=== PATIENT | male | born 1940 | race Caucasian/White ===

== ENCOUNTER 2018-03-24 13:15 | Observation (INO) | payer MEDICARE, BC ==
[2018-03-24] MEDS ORDERED: ONDANSETRON 4 MG INJ IV (14:00)
[2018-03-24] MEDS: SOD CHLORIDE 0.9% 1,000 ML IV (14:00)
[2018-03-24] MEDS ORDERED: ACETAMINOPHEN 325 MG TAB PO (14:00)
[2018-03-24 15:00] LABS: ADD MAN DIFF? NO
[2018-03-24 15:04] LABS: BASOPHILS % 0.3 % (0.0-2.0); EOSINOPHILS # 0.2 10^3/ul (0.0-0.5); EOSINOPHILS % 1.6 % (0.0-7.0); HEMATOCRIT 37.3 % (42.0-52.0); HEMOGLOBIN 11.7 g/dl (14.0-18.0); LYMPHOCYTES # 2.4 10^3/ul (0.8-2.9); LYMPHOCYTES % 23.1 % (15.0-51.0); MEAN CORPUSCULAR HEMOGLOBIN 28.9 pg (29.0-33.0); MEAN CORPUSCULAR HGB CONC 31.4 g/dl (32.0-37.0); MEAN CORPUSCULAR VOLUME 92.1 fl (82.0-101.0); MEAN PLATELET VOLUME 10.7 fl (7.4-10.4); MONOCYTE # 0.8 10^3/ul (0.3-0.9); MONOCYTES % 7.4 % (0.0-11.0); NEUTROPHIL # 7.1 10^3/ul (1.6-7.5); PLATELET COUNT 170 10^3/UL (140-415); RED BLOOD COUNT 4.05 10^6/ul (4.70-6.10); RED CELL DISTRIBUTION WIDTH 15.2 % (11.5-14.5)
[2018-03-24 15:04] LABS: WHITE BLOOD COUNT 10.6 10^3/ul (4.8-10.8)
[2018-03-24 15:23] LABS: INR 0.98; PROTIME 13.1 Sec (11.9-14.9)
[2018-03-24 15:24] LABS: PARTIAL THROMBOPLASTIN TIME 40.8 Sec (25.0-35.0)
[2018-03-24 15:25] LABS: ALANINE AMINOTRANSFERASE 61 IU/L (13-69); ALBUMIN 3.2 g/dl (3.3-4.9); ALKALINE PHOSPHATASE 147 IU/L (42-121); ANION GAP 9 (8-16); ASPARTATE AMINO TRANSFERASE 35 IU/L (15-46); BILIRUBIN,INDIRECT 0.5 mg/dl (0-1.1); BILIRUBIN,TOTAL 0.5 mg/dl (0.2-1.3); BLOOD UREA NITROGEN 17 mg/dl (7-20); CALCIUM 9.6 mg/dl (8.4-10.2); CARBON DIOXIDE 38 mmol/L (21-31); CHLORIDE 97 mmol/L (97-110); CREATININE 0.72 mg/dl (0.61-1.24); GLUCOSE 135 mg/dl (70-220); POTASSIUM 4.5 mmol/L (3.5-5.1); SODIUM 139 mmol/L (135-144); TOTAL PROTEIN 6.4 g/dl (6.1-8.1)
[2018-03-24] MEDS: ALPRAZOLAM 1 MG TAB GTB (17:35)
[2018-03-24] MEDS ORDERED: ALPRAZOLAM 0.25 MG TAB GTB (18:00)
[2018-03-24] MEDS ORDERED: ALBUTEROL/IPRATROPIUM (NEB) 3 ML AMP NEB (18:00)
[2018-03-25] MEDS: VALPROIC ACID LIQUID CUP 250 MG/5 ML CUP GTB ×4 (00:35→20:10)
[2018-03-25] MEDS: RANITIDINE 150 MG TAB GTB ×3 (00:36→20:08)
[2018-03-25] MEDS: METOPROLOL 25 MG TAB GTB ×3 (00:36→20:10)
[2018-03-25] MEDS ORDERED: PENDING SANTYL ORDER FOR WOUND CARE XX (05:30)
[2018-03-25] MEDS: LANSOPRAZOLE 30 MG CAP GTB (05:39)
[2018-03-25] MEDS: MULTIVITAMINS/MINERALS TAB GTB (09:22)
[2018-03-25] MEDS: ALPRAZOLAM 0.25 MG TAB GTB ×4 (09:23→20:08)
[2018-03-25] MEDS: ASPIRIN 81 MG TAB GTB (09:24)
[2018-03-25] MEDS: AMLODIPINE 5 MG TAB GTB (09:24)
[2018-03-25 15:03] LABS: ADD MAN DIFF? NO
[2018-03-25 15:12] LABS: BASOPHILS % 0.5 % (0.0-2.0); EOSINOPHILS # 0.2 10^3/ul (0.0-0.5); EOSINOPHILS % 2.7 % (0.0-7.0); HEMATOCRIT 36.6 % (42.0-52.0); HEMOGLOBIN 11.7 g/dl (14.0-18.0); LYMPHOCYTES % 31.7 % (15.0-51.0); MEAN CORPUSCULAR HEMOGLOBIN 29.4 pg (29.0-33.0); MEAN PLATELET VOLUME 10.6 fl (7.4-10.4); MONOCYTE # 0.5 10^3/ul (0.3-0.9); MONOCYTES % 7.8 % (0.0-11.0); NEUTROPHIL # 3.6 10^3/ul (1.6-7.5); NEUTROPHILS % 56.5 % (39.0-77.0); PLATELET COUNT 144 10^3/UL (140-415); RED BLOOD COUNT 3.98 10^6/ul (4.70-6.10)
[2018-03-25 15:12] LABS: WHITE BLOOD COUNT 6.3 10^3/ul (4.8-10.8)
[2018-03-25 15:25] LABS: ANION GAP 6 (8-16); BLOOD UREA NITROGEN 18 mg/dl (7-20); CALCIUM 9.5 mg/dl (8.4-10.2); CARBON DIOXIDE 35 mmol/L (21-31); CHLORIDE 101 mmol/L (97-110); CREATININE 0.64 mg/dl (0.61-1.24); GLUCOSE 122 mg/dl (70-220); POTASSIUM 4.4 mmol/L (3.5-5.1); SODIUM 138 mmol/L (135-144)
[2018-03-25] MEDS: LIDOCAINE 1%/EPI (MDV) 50 ML INJ INJ ×2 (17:00→17:35)
[2018-03-26] MEDS: LANSOPRAZOLE 30 MG CAP GTB (04:56)
[2018-03-26] MEDS: VALPROIC ACID LIQUID CUP 250 MG/5 ML CUP GTB ×2 (04:58→13:04)
[2018-03-26] MEDS: AMLODIPINE 5 MG TAB GTB (10:09)
[2018-03-26] MEDS: RANITIDINE 150 MG TAB GTB (10:09)
[2018-03-26] MEDS: ALPRAZOLAM 0.25 MG TAB GTB ×3 (10:09→17:55)
[2018-03-26] MEDS: MULTIVITAMINS/MINERALS TAB GTB (10:10)
[2018-03-26] MEDS: METOPROLOL 25 MG TAB GTB (10:10)
[2018-03-26] MEDS: IVERMECTIN 3 MG TAB PO (17:55)
[2018-03-26] MEDS ORDERED: PERMETHRIN 5% 60 GM CR TOP (21:00)
== END 2018-03-26 20:53 ==
LOC: E/R 13:15 → PP2 14:00
DX: L30.8 Other specified dermatitis (principal); L57.8 Other skin changes due to chronic exposure to nonionizing radiation; I10 Essential (primary) hypertension; I69.354 Hemiplegia and hemiparesis following cerebral infarction affecting left non-dominant side; R13.10 Dysphagia, unspecified; E78.5 Hyperlipidemia, unspecified; F41.9 Anxiety disorder, unspecified; F32.9 Major depressive disorder, single episode, unspecified; D50.9 Iron deficiency anemia, unspecified; Z93.1 Gastrostomy status; Z79.82 Long term (current) use of aspirin; Z74.01 Bed confinement status
CPT/HCPCS: 11100; 36415; 80048; 80053; 85025; 85610; 85730; 87081; 88305; 99285-25; G0378

== ENCOUNTER 2018-04-19 22:44 | Inpatient (IN) | payer MEDICARE, BC ==
[2018-04-20 00:19] LABS: ADD MAN DIFF? NO
[2018-04-20 00:23] LABS: BASOPHILS % 0.3 % (0.0-2.0); EOSINOPHILS # 0.1 10^3/ul (0.0-0.5); LYMPHOCYTES # 1.3 10^3/ul (0.8-2.9); LYMPHOCYTES % 10.7 % (15.0-51.0); MEAN CORPUSCULAR HEMOGLOBIN 29.3 pg (29.0-33.0); MEAN CORPUSCULAR HGB CONC 32.4 g/dl (32.0-37.0); MEAN CORPUSCULAR VOLUME 90.5 fl (82.0-101.0); MEAN PLATELET VOLUME 10.1 fl (7.4-10.4); MONOCYTE # 0.8 10^3/ul (0.3-0.9); MONOCYTES % 7.1 % (0.0-11.0); NEUTROPHIL # 9.5 10^3/ul (1.6-7.5); NEUTROPHILS % 80.3 % (39.0-77.0); PLATELET COUNT 218 10^3/UL (140-415); RED BLOOD COUNT 4.09 10^6/ul (4.70-6.10); RED CELL DISTRIBUTION WIDTH 13.9 % (11.5-14.5)
[2018-04-20 00:23] LABS: WHITE BLOOD COUNT 11.8 10^3/ul (4.8-10.8)
[2018-04-20] MEDS: SODIUM CHLORIDE 0.9% 1L BAG IV* (00:27)
[2018-04-20 00:44] LABS: INR 0.97
[2018-04-20 00:45] LABS: PARTIAL THROMBOPLASTIN TIME 31.6 Sec (25.0-35.0)
[2018-04-20 00:59] LABS: ALANINE AMINOTRANSFERASE 25 IU/L (13-69); ALKALINE PHOSPHATASE 111 IU/L (42-121); ANION GAP 8 (8-16); ASPARTATE AMINO TRANSFERASE 23 IU/L (15-46); BILIRUBIN,INDIRECT 0.1 mg/dl (0-1.1); BILIRUBIN,TOTAL 0.1 mg/dl (0.2-1.3); BLOOD UREA NITROGEN 18 mg/dl (7-20); CALCIUM 9.3 mg/dl (8.4-10.2); CARBON DIOXIDE 36 mmol/L (21-31); CHLORIDE 96 mmol/L (97-110); CREATININE 0.74 mg/dl (0.61-1.24); GLUCOSE 135 mg/dl (70-220); POTASSIUM 4.4 mmol/L (3.5-5.1); SODIUM 136 mmol/L (135-144); TOTAL PROTEIN 6.3 g/dl (6.1-8.1)
[2018-04-20] MEDS: LORAZEPAM 2 MG INJ IV ×2 (01:00→05:00)
[2018-04-20 01:02] LABS: LACTIC ACID 1.9 mmol/L (0.5-2.0)
[2018-04-20 01:15] LABS: TROPONIN-I < 0.012 ng/ml (0.000-0.120)
[2018-04-20] MEDS: CEFEPIME 2GM/50 ML (PMX) 50 ML IVPB (02:56)
[2018-04-20] MEDS: VANCOMYCIN 1 GM (PMX) 250 ML IVPB (02:58)
[2018-04-20] MEDS: ACETAMINOPHEN 650 MG SUPP PR (07:29)
[2018-04-20 08:34] LABS: ADD UMIC YES; UR ASCORBIC ACID 40 mg/dL (NEGATIVE); UR BILIRUBIN (Dip) NEGATIVE (NEGATIVE); UR BLOOD (Dip) NEGATIVE (NEGATIVE); UR CLARITY CLEAR (CLEAR); UR COLOR YELLOW (YELLOW); UR GLUCOSE (Dip) NEGATIVE (NEGATIVE); UR KETONES (Dip) 1+ mg/dL (NEGATIVE); UR LEUKOCYTE ESTERASE (Dip) NEGATIVE Leu/ul (NEGATIVE); UR MUCUS FEW /HPF (NONE SEEN); UR NITRITE (Dip) NEGATIVE (NEGATIVE); UR RBC 12 /HPF (0-5); UR SPECIFIC GRAVITY (Dip) 1.025 (1.003-1.030); UR TOTAL PROTEIN (Dip) 1+ mg/dl (NEGATIVE); UR UROBILINOGEN (Dip) NEGATIVE (NEGATIVE); UR WBC 2 /HPF (0-5)
[2018-04-20] MEDS ORDERED: ACETAMINOPHEN 650MG/20.3ML CUP GTB (09:00)
[2018-04-20] MEDS ORDERED: ALPRAZOLAM 0.5 MG TAB GTB (09:00)
[2018-04-20] MEDS: ALPRAZOLAM 0.5 MG TAB GTB ×4 (11:42→22:25)
[2018-04-20] MEDS: SOD CHLORIDE 0.45% 1,000 ML IV (11:42)
[2018-04-20] MEDS: RANITIDINE 150 MG TAB GTB ×2 (11:43→22:25)
[2018-04-20] MEDS: VALPROIC ACID LIQUID CUP 250 MG/5 ML CUP GTB ×3 (11:43→22:25)
[2018-04-20] MEDS: ASPIRIN 81 MG TAB GTB (11:43)
[2018-04-20] MEDS: METOPROLOL 25 MG TAB GTB ×2 (11:43→22:51)
[2018-04-20] MEDS: CEFEPIME 1GM/50 ML (PMX) 50 ML IVPB ×2 (11:45→22:24)
[2018-04-20] MEDS: IPRATROPIUM (NEB) 0.5 MG/2.5 ML AMP HHN ×2 (13:36→19:30)
[2018-04-21] MEDS: ALPRAZOLAM 0.5 MG TAB GTB ×6 (01:34→21:01)
[2018-04-21] MEDS: SOD CHLORIDE 0.45% 1,000 ML IV ×2 (05:20→21:00)
[2018-04-21] MEDS: LANSOPRAZOLE 30 MG CAP GTB (05:21)
[2018-04-21 05:35] LABS: ADD MAN DIFF? NO
[2018-04-21 05:41] LABS: WHITE BLOOD COUNT 6.6 10^3/ul (4.8-10.8)
[2018-04-21 05:41] LABS: BASOPHILS % 0.6 % (0.0-2.0); EOSINOPHILS # 0.1 10^3/ul (0.0-0.5); EOSINOPHILS % 2.1 % (0.0-7.0); HEMATOCRIT 33.7 % (42.0-52.0); HEMOGLOBIN 10.6 g/dl (14.0-18.0); LYMPHOCYTES % 14.9 % (15.0-51.0); MEAN CORPUSCULAR HEMOGLOBIN 29.4 pg (29.0-33.0); MEAN CORPUSCULAR HGB CONC 31.5 g/dl (32.0-37.0); MEAN CORPUSCULAR VOLUME 93.4 fl (82.0-101.0); MEAN PLATELET VOLUME 10.2 fl (7.4-10.4); MONOCYTE # 0.3 10^3/ul (0.3-0.9); MONOCYTES % 5.1 % (0.0-11.0); NEUTROPHIL # 5.1 10^3/ul (1.6-7.5); NEUTROPHILS % 76.8 % (39.0-77.0); PLATELET COUNT 171 10^3/UL (140-415); RED BLOOD COUNT 3.61 10^6/ul (4.70-6.10); RED CELL DISTRIBUTION WIDTH 14.1 % (11.5-14.5)
[2018-04-21 06:05] LABS: ANION GAP 9 (8-16); BLOOD UREA NITROGEN 17 mg/dl (7-20); CALCIUM 8.7 mg/dl (8.4-10.2); CARBON DIOXIDE 31 mmol/L (21-31); CHLORIDE 106 mmol/L (97-110); CREATININE 0.58 mg/dl (0.61-1.24); GLUCOSE 155 mg/dl (70-220); POTASSIUM 4.2 mmol/L (3.5-5.1); SODIUM 142 mmol/L (135-144)
[2018-04-21] MEDS ORDERED: VANCOMYCIN IV PER PHARMACY XX (08:00)
[2018-04-21] MEDS: IPRATROPIUM (NEB) 0.5 MG/2.5 ML AMP HHN ×3 (08:41→19:45)
[2018-04-21] MEDS: METOPROLOL 25 MG TAB GTB ×2 (09:15→20:57)
[2018-04-21] MEDS: ASPIRIN 81 MG TAB GTB (09:15)
[2018-04-21] MEDS: RANITIDINE 150 MG TAB GTB ×2 (09:16→20:58)
[2018-04-21] MEDS: VALPROIC ACID LIQUID CUP 250 MG/5 ML CUP GTB ×3 (09:16→20:57)
[2018-04-21] MEDS: CEFEPIME 1GM/50 ML (PMX) 50 ML IVPB ×2 (09:30→21:01)
[2018-04-21] MEDS: VANCOMYCIN 1.25 GM in SOD CHLORIDE 0.9% 250 ML IVPB (11:02)
[2018-04-22] MEDS: ALPRAZOLAM 0.5 MG TAB GTB ×6 (01:00→20:39)
[2018-04-22 05:28] LABS: ADD MAN DIFF? NO
[2018-04-22 05:32] LABS: WHITE BLOOD COUNT 5.8 10^3/ul (4.8-10.8)
[2018-04-22 05:32] LABS: BASOPHILS % 0.7 % (0.0-2.0); EOSINOPHILS # 0.3 10^3/ul (0.0-0.5); EOSINOPHILS % 4.8 % (0.0-7.0); HEMATOCRIT 33.5 % (42.0-52.0); HEMOGLOBIN 10.5 g/dl (14.0-18.0); LYMPHOCYTES # 1.1 10^3/ul (0.8-2.9); LYMPHOCYTES % 18.2 % (15.0-51.0); MEAN CORPUSCULAR HGB CONC 31.3 g/dl (32.0-37.0); MEAN CORPUSCULAR VOLUME 92.5 fl (82.0-101.0); MEAN PLATELET VOLUME 10.3 fl (7.4-10.4); MONOCYTE # 0.6 10^3/ul (0.3-0.9); MONOCYTES % 10.1 % (0.0-11.0); NEUTROPHIL # 3.8 10^3/ul (1.6-7.5); NEUTROPHILS % 65.5 % (39.0-77.0); PLATELET COUNT 182 10^3/UL (140-415); RED BLOOD COUNT 3.62 10^6/ul (4.70-6.10); RED CELL DISTRIBUTION WIDTH 13.8 % (11.5-14.5)
[2018-04-22] MEDS: LANSOPRAZOLE 30 MG CAP GTB (06:01)
[2018-04-22] MEDS: IPRATROPIUM (NEB) 0.5 MG/2.5 ML AMP HHN ×3 (08:17→19:40)
[2018-04-22] MEDS: RANITIDINE 150 MG TAB GTB ×2 (10:01→20:39)
[2018-04-22] MEDS: ASPIRIN 81 MG TAB GTB (10:01)
[2018-04-22] MEDS: METOPROLOL 25 MG TAB GTB ×2 (10:02→20:39)
[2018-04-22] MEDS: VALPROIC ACID LIQUID CUP 250 MG/5 ML CUP GTB ×3 (10:02→20:38)
[2018-04-22] MEDS: CEFEPIME 1GM/50 ML (PMX) 50 ML IVPB ×2 (10:19→21:57)
[2018-04-22] MEDS: VANCOMYCIN 1.25 GM in SOD CHLORIDE 0.9% 250 ML IVPB (12:08)
[2018-04-22] MEDS: SOD CHLORIDE 0.45% 1,000 ML IV (13:00)
[2018-04-22 13:33] LABS: ANION GAP 8 (8-16); BLOOD UREA NITROGEN 15 mg/dl (7-20); CARBON DIOXIDE 36 mmol/L (21-31); CHLORIDE 102 mmol/L (97-110); CREATININE 0.56 mg/dl (0.61-1.24); GLUCOSE 105 mg/dl (70-220); POTASSIUM 4.3 mmol/L (3.5-5.1); SODIUM 142 mmol/L (135-144)
[2018-04-23] MEDS: ALPRAZOLAM 0.5 MG TAB GTB ×6 (01:00→20:46)
[2018-04-23] MEDS: LANSOPRAZOLE 30 MG CAP GTB (05:34)
[2018-04-23] MEDS: SOD CHLORIDE 0.45% 1,000 ML IV ×2 (05:35→22:20)
[2018-04-23] MEDS: IPRATROPIUM (NEB) 0.5 MG/2.5 ML AMP HHN ×3 (08:41→20:29)
[2018-04-23] MEDS: VALPROIC ACID LIQUID CUP 250 MG/5 ML CUP GTB ×3 (09:04→20:46)
[2018-04-23] MEDS: RANITIDINE 150 MG TAB GTB ×2 (09:05→20:46)
[2018-04-23] MEDS: ASPIRIN 81 MG TAB GTB (09:05)
[2018-04-23] MEDS: METOPROLOL 25 MG TAB GTB ×2 (09:06→20:46)
[2018-04-23] MEDS: LIDOCAINE 1% (MPF) 5 ML VIAL SC (10:30)
[2018-04-23] MEDS: CEFEPIME 1GM/50 ML (PMX) 50 ML IVPB ×2 (11:07→20:46)
[2018-04-23] MEDS: VANCOMYCIN 1.25 GM in SOD CHLORIDE 0.9% 250 ML IVPB (11:38)
[2018-04-24] MEDS: ALPRAZOLAM 0.5 MG TAB GTB ×5 (01:00→17:41)
[2018-04-24] MEDS: LANSOPRAZOLE 30 MG CAP GTB (05:40)
[2018-04-24 05:49] LABS: ADD MAN DIFF? NO
[2018-04-24] MEDS: DIPHENHYDRAMINE 50 MG INJ IV (05:52)
[2018-04-24] MEDS: SOD CHLORIDE 0.45% 1,000 ML IV (05:52)
[2018-04-24 05:56] LABS: BASOPHIL # 0.1 10^3/ul (0.0-0.1); EOSINOPHILS # 0.3 10^3/ul (0.0-0.5); EOSINOPHILS % 6.5 % (0.0-7.0); HEMATOCRIT 35.3 % (42.0-52.0); HEMOGLOBIN 11.1 g/dl (14.0-18.0); LYMPHOCYTES # 1.2 10^3/ul (0.8-2.9); MEAN CORPUSCULAR HEMOGLOBIN 28.8 pg (29.0-33.0); MEAN CORPUSCULAR HGB CONC 31.4 g/dl (32.0-37.0); MEAN CORPUSCULAR VOLUME 91.7 fl (82.0-101.0); MONOCYTE # 0.5 10^3/ul (0.3-0.9); MONOCYTES % 9.3 % (0.0-11.0); NEUTROPHILS % 58.8 % (39.0-77.0); PLATELET COUNT 183 10^3/UL (140-415); RED BLOOD COUNT 3.85 10^6/ul (4.70-6.10); RED CELL DISTRIBUTION WIDTH 13.9 % (11.5-14.5)
[2018-04-24 06:15] LABS: CREATININE 0.58 mg/dl (0.61-1.24)
[2018-04-24 06:15] LABS: BLOOD UREA NITROGEN 13 mg/dl (7-20)
[2018-04-24 06:16] LABS: ANION GAP 10 (8-16); BLOOD UREA NITROGEN 13 mg/dl (7-20); CALCIUM 9.1 mg/dl (8.4-10.2); CARBON DIOXIDE 33 mmol/L (21-31); CHLORIDE 104 mmol/L (97-110); CREATININE 0.57 mg/dl (0.61-1.24); GLUCOSE 123 mg/dl (70-220); POTASSIUM 4.3 mmol/L (3.5-5.1); SODIUM 143 mmol/L (135-144)
[2018-04-24] MEDS: IPRATROPIUM (NEB) 0.5 MG/2.5 ML AMP HHN ×3 (08:32→21:05)
[2018-04-24] MEDS: METOPROLOL 25 MG TAB GTB ×2 (09:23→20:48)
[2018-04-24] MEDS: ASPIRIN 81 MG TAB GTB (09:23)
[2018-04-24] MEDS: VALPROIC ACID LIQUID CUP 250 MG/5 ML CUP GTB ×3 (09:23→20:46)
[2018-04-24] MEDS: RANITIDINE 150 MG TAB GTB ×2 (09:23→20:47)
[2018-04-24] MEDS: CEFEPIME 1GM/50 ML (PMX) 50 ML IVPB ×2 (09:28→20:51)
[2018-04-24 12:19] LABS: VANCOMYCIN,TROUGH 7.3 ug/ml (10.0-20.0)
[2018-04-24] MEDS: VANCOMYCIN 1.25 GM in SOD CHLORIDE 0.9% 250 ML IVPB (12:44)
[2018-04-24] MEDS ORDERED: VITAMIN A & D 5 GM OINT PACKET TOP (16:57)
[2018-04-24] MEDS: ALPRAZOLAM 0.25 MG TAB GTB (18:36)
[2018-04-25] MEDS ORDERED: VANCOMYCIN 1 GM 250 ML IVPB
== END 2018-04-24 21:55 | DRG 871 ==
LOC: E/R 22:44 → MS1 04-20 02:16
PROC: 02HV33Z Insertion of Infusion Device into Superior Vena Cava, Percutaneous Approach (ICD-10-PCS; principal; 2018-04-23)
PROC: B54MZZA Ultrasonography of Right Upper Extremity Veins, Guidance (ICD-10-PCS; 2018-04-23)
DX: A41.9 Sepsis, unspecified organism (principal); J18.9 Pneumonia, unspecified organism; G93.40 Encephalopathy, unspecified; I69.354 Hemiplegia and hemiparesis following cerebral infarction affecting left non-dominant side; I10 Essential (primary) hypertension; E78.5 Hyperlipidemia, unspecified; R13.10 Dysphagia, unspecified; Z66 Do not resuscitate
CPT/HCPCS: 36569; 71045; 76937; 80048; 80053; 80202; 81001; 82565; 83605; 84484; 84520; 85025; 85610; 85730; 87040; 87086; 93005; 94640; 94664

== ENCOUNTER 2018-07-26 20:06 | Inpatient (IN) | payer MEDICARE, BC, OTHER ==
[2018-07-26] MEDS: IPRATROPIUM (NEB) 0.5 MG/2.5 ML AMP INH (20:44)
[2018-07-26] MEDS: ALBUTEROL 0.5% (NEB) 2.5 MG/0.5 ML AMP INH (20:44)
[2018-07-26] MEDS: CEFEPIME 2GM/50 ML (PMX) 50 ML IVPB (21:19)
[2018-07-26] MEDS: METHYLPREDNISOLONE 125 MG INJ IV (21:19)
[2018-07-26 21:23] LABS: WHITE BLOOD COUNT 13.4 10^3/ul (4.8-10.8)
[2018-07-26 21:23] LABS: HEMATOCRIT 39.4 % (42.0-52.0); HEMOGLOBIN 12.1 g/dl (14.0-18.0); MEAN CORPUSCULAR HEMOGLOBIN 28.5 pg (29.0-33.0); MEAN CORPUSCULAR HGB CONC 30.7 g/dl (32.0-37.0); MEAN CORPUSCULAR VOLUME 92.9 fl (82.0-101.0); MEAN PLATELET VOLUME 10.1 fl (7.4-10.4); PLATELET COUNT 286 10^3/UL (140-415); POSITIVE DIFF @See below; RED BLOOD COUNT 4.24 10^6/ul (4.70-6.10); RED CELL DISTRIBUTION WIDTH 13.6 % (11.5-14.5)
[2018-07-26 21:25] LABS: ADD MAN DIFF? YES
[2018-07-26] MEDS: VANCOMYCIN 1 GM (PMX) 250 ML IVPB (21:33)
[2018-07-26 21:43] LABS: ALANINE AMINOTRANSFERASE 28 IU/L (13-69); ALBUMIN 3.6 g/dl (3.3-4.9); ALKALINE PHOSPHATASE 117 IU/L (42-121); ANION GAP 15 (8-16); ASPARTATE AMINO TRANSFERASE 33 IU/L (15-46); BILIRUBIN,INDIRECT 0.2 mg/dl (0-1.1); BILIRUBIN,TOTAL 0.2 mg/dl (0.2-1.3); BLOOD UREA NITROGEN 17 mg/dl (7-20); CALCIUM 9.6 mg/dl (8.4-10.2); CARBON DIOXIDE 33 mmol/L (21-31); CHLORIDE 92 mmol/L (97-110); GLUCOSE 140 mg/dl (70-220); SODIUM 136 mmol/L (135-144); TOTAL PROTEIN 7.2 g/dl (6.1-8.1)
[2018-07-26 21:54] LABS: B-TYPE NATRIURETIC PEPTIDE 446 PG/ML (0-450); TROPONIN-I < 0.012 ng/ml (0.000-0.120)
[2018-07-26] MEDS ORDERED: ONDANSETRON 4 MG INJ IV (22:00)
[2018-07-26] MEDS ORDERED: ACETAMINOPHEN 325 MG TAB PO (22:00)
[2018-07-26] MEDS: ACETAMINOPHEN 650 MG SUPP PR (22:02)
[2018-07-26] MEDS: SODIUM CHLORIDE 0.9% 1L BAG IV* (22:03)
[2018-07-26 22:56] LABS: BAND NEUTROPHILS #M 1.7 10^3/ul (0.0-0.6); BAND NEUTROPHILS % (M) 13 % (0-4); EOSINOPHILS % (M) 1 % (0-7); GIANT THROMBO% (M) 2 % (0-0); LYMPHOCYTES #M 1.8 10^3/ul (0.8-2.9); LYMPHOCYTES % (M) 14 % (15-51); MONOCYTE #M 0.2 10^3/ul (0.3-0.9); MONOCYTES % (M) 2 % (0-11); MYELOCYTES #M 0.1 10^3/ul (0.0-0.0); MYELOCYTES % (M) 1 % (0-0); PLATELET ESTIMATE NORMAL; REACTIVE LYMPHOCYTES #M 0.9 10^3/ul (0.0-0.0); REACTIVE LYMPHOCYTES% (M) 7 % (0-0); SEG NEUT #M 8.4 10^3/ul (1.6-7.5); SEGMENTED NEUTROPHILS (M) % 61 % (39-77); SMUDGE%M 18 % (0-0)
[2018-07-26] MEDS ORDERED: VANCOMYCIN IV PER PHARMACY XX (23:30)
[2018-07-26] MEDS: SOD CHLORIDE 0.9% 1,000 ML IV (23:56)
[2018-07-27] MEDS ORDERED: morphine 2 MG INJ IV
[2018-07-27] MEDS: D5W-0.45 NACL + KCL 20 MEQ 1,000 ML IV (00:05)
[2018-07-27 01:05] LABS: LACTIC ACID 1.8 mmol/L (0.5-2.0)
[2018-07-27] MEDS: ALBUTEROL/IPRATROPIUM (NEB) 3 ML AMP HHN ×4 (02:00→20:23)
[2018-07-27 03:24] LABS: CREATINE KINASE 103 IU/L (23-200)
[2018-07-27 03:36] LABS: CK INDEX 1.5; CK-MB 1.53 ng/ml (0.0-2.4); TROPONIN-I 0.018 ng/ml (0.000-0.120)
[2018-07-27] MEDS ORDERED: ALBUTEROL/IPRATROPIUM (NEB) 3 ML AMP HHN (05:00)
[2018-07-27] MEDS: PANTOPRAZOLE (EC) 40 MG TAB PO (06:00)
[2018-07-27 06:13] LABS: AADO2 Arterial 499.8 mmHg (7.0-24.0); Allen Test ACCEPTAB; Arterial Base Excess 2.4 mmol/L (-3.0-3); Arterial COHb 0.3 % (0.0-3.0); Arterial Fraction of Oxyhgb 98.4 % (93.0-99.0); Arterial MetHb 0.3 % (0.0-1.5); Arterial Total Hemglobin 15.8 g/dl (12.0-18.0); MODE MASK - NRB; Site Right Radial
[2018-07-27 06:23] LABS: WHITE BLOOD COUNT 11.8 10^3/ul (4.8-10.8)
[2018-07-27 06:23] LABS: ABNORMAL IP MESSAGE 1; HEMATOCRIT 38.3 % (42.0-52.0); MEAN CORPUSCULAR HEMOGLOBIN 29.2 pg (29.0-33.0); MEAN CORPUSCULAR HGB CONC 31.3 g/dl (32.0-37.0); MEAN CORPUSCULAR VOLUME 93.2 fl (82.0-101.0); MEAN PLATELET VOLUME 10.6 fl (7.4-10.4); PLATELET COUNT 219 10^3/UL (140-415); POSITIVE DIFF @See below; RED BLOOD COUNT 4.11 10^6/ul (4.70-6.10); RED CELL DISTRIBUTION WIDTH 13.2 % (11.5-14.5)
[2018-07-27 06:32] LABS: ADD MAN DIFF? YES
[2018-07-27] MEDS: VANCOMYCIN 1.5 GM in SOD CHLORIDE 0.9% 250 ML IVPB (06:55)
[2018-07-27 07:00] LABS: CREATINE KINASE 83 IU/L (23-200)
[2018-07-27 07:04] LABS: CK INDEX 2.3; CK-MB 1.87 ng/ml (0.0-2.4)
[2018-07-27 07:07] LABS: ANION GAP 15 (8-16); BLOOD UREA NITROGEN 20 mg/dl (7-20); CALCIUM 9.5 mg/dl (8.4-10.2); CARBON DIOXIDE 29 mmol/L (21-31); CHLORIDE 98 mmol/L (97-110); CREATININE 0.73 mg/dl (0.61-1.24); GLUCOSE 282 mg/dl (70-220); POTASSIUM 5.2 mmol/L (3.5-5.1); SODIUM 137 mmol/L (135-144)
[2018-07-27] MEDS ORDERED: NON-FORMULARY/PATIENT OWN MED (Protein Supplement (Promod) 30 ML) XX (09:00)
[2018-07-27] MEDS: VALPROIC ACID LIQUID CUP 250 MG/5 ML CUP GTB ×3 (09:03→21:09)
[2018-07-27] MEDS: FERROUS SULFATE (EC) 325 MG TAB PO (09:03)
[2018-07-27] MEDS: ASPIRIN (EC) 81 MG TAB PO (09:03)
[2018-07-27] MEDS: CEFEPIME 1 GM/50 ML (09:04)
[2018-07-27] MEDS: METOPROLOL 25 MG TAB GTB ×2 (09:04→21:10)
[2018-07-27] MEDS: ENOXAPARIN 40 MG/0.4 ML SYG SC (09:05)
[2018-07-27 09:15] LABS: ANISOCYTOSIS 1+ (0-0); BAND NEUTROPHILS #M 2.3 10^3/ul (0.0-0.6); BAND NEUTROPHILS % (M) 20 % (0-4); LYMPHOCYTES #M 0.1 10^3/ul (0.8-2.9); LYMPHOCYTES % (M) 1 % (15-51); PLATELET ESTIMATE NORMAL; POIKILOCYTOSIS 2+ (0-0); POLYCHROMASIA 3+ (0-0); SEG NEUT #M 9.6 10^3/ul (1.6-7.5); SEGMENTED NEUTROPHILS (M) % 79 % (39-77); SMUDGE%M 1 % (0-0)
[2018-07-27] MEDS: LIDOCAINE 1% (MPF) 5 ML VIAL SC (14:55)
[2018-07-27] MEDS: DEXTROSE 5%-0.9% NACL 1,000 ML IV ×2 (16:11→23:48)
[2018-07-27 16:39] LABS: Allen Test ACCEPTAB; Arterial Base Excess 4.8 mmol/L (-3.0-3); Arterial Blood Gas Oxygen Sat 97.9 mmHG (95.0-100.0); Arterial COHb 0.2 % (0.0-3.0); Arterial Fraction of Oxyhgb 97.5 % (93.0-99.0); Arterial HCO3 32.1 mmol/L (22.0-26.0); Arterial MetHb 0.2 % (0.0-1.5); Arterial Total Hemglobin 11.9 g/dl (12.0-18.0); Arterial pCO2 61.6 mmhg (35-45); MODE MASK - NRB; Site Right Radial
[2018-07-27] MEDS ORDERED: morphine LIQ (10 MG/5 ML) CUP PO (17:00)
[2018-07-27] MEDS: FLUOCINONIDE 0.05% CR 30GM TUBE TOP (21:09)
[2018-07-27] MEDS: CEFEPIME 1GM/50 ML (PMX) 50 ML IVPB (21:09)
[2018-07-27] MEDS: VANCOMYCIN 1 GM 250 ML IVPB (22:54)
[2018-07-28] MEDS ORDERED: ALPRAZOLAM 0.5 MG TAB GTB (01:00)
[2018-07-28] MEDS: ALPRAZOLAM 0.25 MG TAB GTB ×4 (01:11→20:19)
[2018-07-28] MEDS: ALBUTEROL/IPRATROPIUM (NEB) 3 ML AMP HHN ×4 (01:31→20:47)
[2018-07-28] MEDS: PANTOPRAZOLE (EC) 40 MG TAB PO (06:03)
[2018-07-28] MEDS: FERROUS SULFATE (EC) 325 MG TAB PO (08:13)
[2018-07-28] MEDS: ASPIRIN (EC) 81 MG TAB PO (08:13)
[2018-07-28] MEDS: CEFEPIME 1GM/50 ML (PMX) 50 ML IVPB ×2 (08:14→20:20)
[2018-07-28] MEDS: VALPROIC ACID LIQUID CUP 250 MG/5 ML CUP GTB ×3 (08:14→20:20)
[2018-07-28] MEDS: METOPROLOL 25 MG TAB GTB ×2 (08:15→20:25)
[2018-07-28] MEDS: ENOXAPARIN 40 MG/0.4 ML SYG SC (08:23)
[2018-07-28 08:26] LABS: AADO2 Arterial 530.7 mmHg (7.0-24.0); Allen Test ACCEPTAB; Arterial Base Excess 3.8 mmol/L (-3.0-3); Arterial COHb 0.3 % (0.0-3.0); Arterial Fraction of Oxyhgb 97.5 % (93.0-99.0); Arterial HCO3 31.6 mmol/L (22.0-26.0); Arterial MetHb 0.2 % (0.0-1.5); Arterial Total Hemglobin 11.5 g/dl (12.0-18.0); Arterial pCO2 64.9 mmhg (35-45); MODE MASK - NRB; Site Right Radial
[2018-07-28] MEDS: VANCOMYCIN 1 GM 250 ML IVPB (10:55)
[2018-07-28] MEDS: DEXTROSE 5%-0.9% NACL 1,000 ML IV (11:03)
[2018-07-28] MEDS: MUPIROCIN 2% 22 GM OINT TOP (20:19)
[2018-07-28] MEDS: FLUOCINONIDE 0.05% CR 30GM TUBE TOP (20:26)
[2018-07-28 21:55] LABS: VANCOMYCIN,TROUGH 19.4 ug/ml (10.0-20.0)
[2018-07-29] MEDS: ALPRAZOLAM 0.25 MG TAB GTB ×6 (01:10→23:19)
[2018-07-29] MEDS: VANCOMYCIN 750 MG in SOD CHLORIDE 0.9% 150 ML IVPB ×2 (01:10→13:55)
[2018-07-29] MEDS: ALBUTEROL/IPRATROPIUM (NEB) 3 ML AMP HHN ×4 (02:03→20:02)
[2018-07-29] MEDS: PANTOPRAZOLE (EC) 40 MG TAB PO (06:21)
[2018-07-29] MEDS: DEXTROSE 5%-0.9% NACL 1,000 ML IV (06:22)
[2018-07-29 07:28] LABS: ADD MAN DIFF? NO
[2018-07-29 07:37] LABS: BASOPHILS % 0.3 % (0.0-2.0); EOSINOPHILS # 0.1 10^3/ul (0.0-0.5); EOSINOPHILS % 0.9 % (0.0-7.0); HEMATOCRIT 30.6 % (42.0-52.0); HEMOGLOBIN 9.4 g/dl (14.0-18.0); LYMPHOCYTES % 14.4 % (15.0-51.0); MEAN CORPUSCULAR HGB CONC 30.7 g/dl (32.0-37.0); MEAN CORPUSCULAR VOLUME 94.4 fl (82.0-101.0); MEAN PLATELET VOLUME 10.7 fl (7.4-10.4); MONOCYTE # 0.4 10^3/ul (0.3-0.9); MONOCYTES % 6.1 % (0.0-11.0); NEUTROPHIL # 5.2 10^3/ul (1.6-7.5); NEUTROPHILS % 77.9 % (39.0-77.0); PLATELET COUNT 211 10^3/UL (140-415); RED BLOOD COUNT 3.24 10^6/ul (4.70-6.10); RED CELL DISTRIBUTION WIDTH 13.1 % (11.5-14.5)
[2018-07-29 07:37] LABS: WHITE BLOOD COUNT 6.7 10^3/ul (4.8-10.8)
[2018-07-29 07:54] LABS: ANION GAP 7 (8-16); BLOOD UREA NITROGEN 17 mg/dl (7-20); CALCIUM 8.6 mg/dl (8.4-10.2); CARBON DIOXIDE 32 mmol/L (21-31); CHLORIDE 103 mmol/L (97-110); CREATININE 0.58 mg/dl (0.61-1.24); GLUCOSE 251 mg/dl (70-220); POTASSIUM 3.5 mmol/L (3.5-5.1); SODIUM 138 mmol/L (135-144)
[2018-07-29] MEDS: FERROUS SULFATE (EC) 325 MG TAB PO (09:16)
[2018-07-29] MEDS: ASPIRIN (EC) 81 MG TAB PO (09:16)
[2018-07-29] MEDS: VALPROIC ACID LIQUID CUP 250 MG/5 ML CUP GTB ×3 (09:16→21:05)
[2018-07-29] MEDS: METOPROLOL 25 MG TAB GTB (09:16)
[2018-07-29] MEDS: CEFEPIME 1GM/50 ML (PMX) 50 ML IVPB ×2 (09:20→21:01)
[2018-07-29] MEDS: MUPIROCIN 2% 22 GM OINT TOP ×2 (09:25→21:10)
[2018-07-29] MEDS: ENOXAPARIN 40 MG/0.4 ML SYG SC (09:27)
[2018-07-29] MEDS: METOPROLOL 5 MG INJ IV (09:41)
[2018-07-29] MEDS ORDERED: DIGOXIN 500 MCG INJ IV (13:00)
[2018-07-29] MEDS: SOD CHLORIDE 0.45% 1,000 ML IV (13:44)
[2018-07-29] MEDS: DIGOXIN 500 MCG INJ IV (13:52)
[2018-07-29] MEDS: METOPROLOL 50 MG TAB GTB (21:04)
[2018-07-29] MEDS: FLUOCINONIDE 0.05% CR 30GM TUBE TOP (21:11)
[2018-07-29] MEDS: ENOXAPARIN 60 MG/0.6 ML SYG SC (21:17)
[2018-07-30] MEDS: VANCOMYCIN 750 MG in SOD CHLORIDE 0.9% 150 ML IVPB ×2 (01:20→14:54)
[2018-07-30] MEDS: ALBUTEROL/IPRATROPIUM (NEB) 3 ML AMP HHN ×4 (02:01→19:53)
[2018-07-30] MEDS: ACETAMINOPHEN 325 MG TAB GTB (05:23)
[2018-07-30] MEDS: ALPRAZOLAM 0.25 MG TAB GTB ×4 (05:23→23:13)
[2018-07-30] MEDS: PANTOPRAZOLE (EC) 40 MG TAB PO (05:23)
[2018-07-30] MEDS: ASPIRIN (EC) 81 MG TAB PO (08:33)
[2018-07-30] MEDS: VALPROIC ACID LIQUID CUP 250 MG/5 ML CUP GTB ×3 (08:33→20:49)
[2018-07-30] MEDS: METOPROLOL 50 MG TAB GTB ×2 (08:34→20:49)
[2018-07-30] MEDS: FERROUS SULFATE (EC) 325 MG TAB PO (08:34)
[2018-07-30] MEDS: MUPIROCIN 2% 22 GM OINT TOP ×2 (08:35→21:06)
[2018-07-30] MEDS: CEFEPIME 1GM/50 ML (PMX) 50 ML IVPB ×2 (08:35→20:57)
[2018-07-30 08:47] LABS: HEMOGLOBIN A1C 6.1 % (0-5.9)
[2018-07-30] MEDS: ENOXAPARIN 60 MG/0.6 ML SYG SC ×2 (08:56→21:06)
[2018-07-30] MEDS: SOD CHLORIDE 0.45% 1,000 ML IV ×2 (12:33→20:55)
[2018-07-30] MEDS: FLUOCINONIDE 0.05% CR 30GM TUBE TOP (21:06)
[2018-07-31] MEDS: ALBUTEROL/IPRATROPIUM (NEB) 3 ML AMP HHN ×4 (01:34→19:44)
[2018-07-31] MEDS: VANCOMYCIN 750 MG in SOD CHLORIDE 0.9% 150 ML IVPB (01:44)
[2018-07-31] MEDS: PANTOPRAZOLE (EC) 40 MG TAB PO (05:13)
[2018-07-31] MEDS: ALPRAZOLAM 0.25 MG TAB GTB ×4 (05:13→23:30)
[2018-07-31 07:41] LABS: BLOOD UREA NITROGEN 12 mg/dl (7-20)
[2018-07-31 07:41] LABS: CREATININE 0.62 mg/dl (0.61-1.24)
[2018-07-31] MEDS: VALPROIC ACID LIQUID CUP 250 MG/5 ML CUP GTB ×3 (08:57→21:14)
[2018-07-31] MEDS: METOPROLOL 50 MG TAB GTB ×2 (08:58→21:18)
[2018-07-31] MEDS: ASPIRIN (EC) 81 MG TAB PO (08:58)
[2018-07-31] MEDS: CEFEPIME 1GM/50 ML (PMX) 50 ML IVPB ×2 (08:58→21:15)
[2018-07-31] MEDS: MUPIROCIN 2% 22 GM OINT TOP ×2 (08:58→21:20)
[2018-07-31] MEDS: FERROUS SULFATE (EC) 325 MG TAB PO (08:58)
[2018-07-31] MEDS: ENOXAPARIN 60 MG/0.6 ML SYG SC ×2 (09:24→21:36)
[2018-07-31] MEDS ORDERED: GLUCOSE GEL 15 GRAM TUBE BUCCAL (10:30)
[2018-07-31] MEDS ORDERED: GLUCOSE GEL 15 GRAM TUBE PO ×2 (10:30)
[2018-07-31] MEDS ORDERED: GLUCAGON 1 MG INJ IM (10:30)
[2018-07-31] MEDS ORDERED: DEXTROSE 50% 50 ML SYRINGE IV ×2 (10:30)
[2018-07-31] MEDS: INSULIN ASPART [NOVOLOG] 3 ML PEN SC ×3 (11:50→21:00)
[2018-07-31] MEDS: metFORMIN 500 MG TAB GTB (17:30)
[2018-07-31] MEDS: VANCOMYCIN 500MG/NS (PMX) 100 ML IVPB (17:34)
[2018-07-31] MEDS: FLUOCINONIDE 0.05% CR 30GM TUBE TOP (21:15)
[2018-08-01] MEDS: ALBUTEROL/IPRATROPIUM (NEB) 3 ML AMP HHN ×4 (01:51→20:00)
[2018-08-01] MEDS: ALPRAZOLAM 0.25 MG TAB GTB ×4 (05:11→23:22)
[2018-08-01] MEDS: PANTOPRAZOLE (EC) 40 MG TAB PO (05:11)
[2018-08-01] MEDS: SOD CHLORIDE 0.45% 1,000 ML IV (05:26)
[2018-08-01] MEDS: VANCOMYCIN 500MG/NS (PMX) 100 ML IVPB ×2 (05:26→17:27)
[2018-08-01 06:55] LABS: ADD MAN DIFF? NO
[2018-08-01 07:02] LABS: BASOPHILS % 0.4 % (0.0-2.0); EOSINOPHILS # 0.5 10^3/ul (0.0-0.5); EOSINOPHILS % 9.3 % (0.0-7.0); HEMATOCRIT 29.4 % (42.0-52.0); HEMOGLOBIN 9.2 g/dl (14.0-18.0); LYMPHOCYTES # 0.9 10^3/ul (0.8-2.9); MEAN CORPUSCULAR HEMOGLOBIN 29.3 pg (29.0-33.0); MEAN CORPUSCULAR HGB CONC 31.3 g/dl (32.0-37.0); MEAN CORPUSCULAR VOLUME 93.6 fl (82.0-101.0); MEAN PLATELET VOLUME 10.7 fl (7.4-10.4); MONOCYTE # 0.3 10^3/ul (0.3-0.9); MONOCYTES % 6.5 % (0.0-11.0); NEUTROPHIL # 3.2 10^3/ul (1.6-7.5); PLATELET COUNT 176 10^3/UL (140-415); RED BLOOD COUNT 3.14 10^6/ul (4.70-6.10); RED CELL DISTRIBUTION WIDTH 13.2 % (11.5-14.5)
[2018-08-01 07:38] LABS: ANION GAP 8 (8-16); BLOOD UREA NITROGEN 10 mg/dl (7-20); CALCIUM 8.2 mg/dl (8.4-10.2); CARBON DIOXIDE 37 mmol/L (21-31); CHLORIDE 100 mmol/L (97-110); GLUCOSE 151 mg/dl (70-220); POTASSIUM 3.5 mmol/L (3.5-5.1); SODIUM 141 mmol/L (135-144)
[2018-08-01] MEDS: metFORMIN 500 MG TAB GTB ×2 (07:44→17:26)
[2018-08-01] MEDS: INSULIN ASPART [NOVOLOG] 3 ML PEN SC ×4 (07:56→23:30)
[2018-08-01] MEDS: CEFEPIME 1GM/50 ML (PMX) 50 ML IVPB ×2 (09:30→20:11)
[2018-08-01] MEDS: MUPIROCIN 2% 22 GM OINT TOP ×2 (09:31→20:12)
[2018-08-01] MEDS: FERROUS SULFATE (EC) 325 MG TAB PO (09:31)
[2018-08-01] MEDS: VALPROIC ACID LIQUID CUP 250 MG/5 ML CUP GTB ×3 (09:32→20:11)
[2018-08-01] MEDS: METOPROLOL 50 MG TAB GTB ×2 (09:33→20:11)
[2018-08-01] MEDS: ENOXAPARIN 60 MG/0.6 ML SYG SC ×2 (09:38→20:19)
[2018-08-01] MEDS: FLUOCINONIDE 0.05% CR 30GM TUBE TOP (20:12)
[2018-08-02] MEDS: ALBUTEROL/IPRATROPIUM (NEB) 3 ML AMP HHN ×4 (02:09→19:50)
[2018-08-02] MEDS: DILTIAZEM 25 MG INJ IV (04:35)
[2018-08-02] MEDS: PANTOPRAZOLE (EC) 40 MG TAB PO (05:31)
[2018-08-02] MEDS: INSULIN ASPART [NOVOLOG] 3 ML PEN SC ×3 (05:31→17:03)
[2018-08-02] MEDS: VANCOMYCIN 500MG/NS (PMX) 100 ML IVPB ×2 (05:31→17:03)
[2018-08-02] MEDS: ALPRAZOLAM 0.25 MG TAB GTB (05:31)
[2018-08-02] MEDS: CEFEPIME 1GM/50 ML (PMX) 50 ML IVPB ×2 (08:14→21:17)
[2018-08-02] MEDS: VALPROIC ACID LIQUID CUP 250 MG/5 ML CUP GTB ×3 (08:14→21:16)
[2018-08-02] MEDS: metFORMIN 500 MG TAB GTB ×2 (08:14→16:59)
[2018-08-02] MEDS: FERROUS SULFATE (EC) 325 MG TAB PO (08:14)
[2018-08-02] MEDS: METOPROLOL 50 MG TAB GTB ×2 (08:16→21:16)
[2018-08-02] MEDS: LOSARTAN 25 MG TAB PO (08:16)
[2018-08-02] MEDS: MUPIROCIN 2% 22 GM OINT TOP ×2 (08:17→21:20)
[2018-08-02] MEDS: ENOXAPARIN 60 MG/0.6 ML SYG SC ×2 (08:19→21:43)
[2018-08-02] MEDS: ALPRAZOLAM 0.5 MG TAB GTB ×3 (12:06→21:16)
[2018-08-02] MEDS: SOD CHLORIDE 0.45% 1,000 ML IV (12:07)
[2018-08-02 17:18] LABS: VANCOMYCIN,TROUGH 10.7 ug/ml (10.0-20.0)
[2018-08-02] MEDS: FLUOCINONIDE 0.05% CR 30GM TUBE TOP (21:20)
[2018-08-03] MEDS: ALPRAZOLAM 0.5 MG TAB GTB ×6 (00:38→21:07)
[2018-08-03] MEDS: ALBUTEROL/IPRATROPIUM (NEB) 3 ML AMP HHN ×6 (01:47→20:56)
[2018-08-03] MEDS: PANTOPRAZOLE (EC) 40 MG TAB PO (05:09)
[2018-08-03] MEDS: VANCOMYCIN 750 MG in SOD CHLORIDE 0.9% 150 ML IVPB ×2 (05:14→18:00)
[2018-08-03] MEDS: INSULIN ASPART [NOVOLOG] 3 ML PEN SC ×4 (05:17→18:00)
[2018-08-03 07:07] LABS: ADD MAN DIFF? NO
[2018-08-03 07:12] LABS: WHITE BLOOD COUNT 4.6 10^3/ul (4.8-10.8)
[2018-08-03 07:12] LABS: BASOPHILS % 0.2 % (0.0-2.0); EOSINOPHILS # 0.4 10^3/ul (0.0-0.5); HEMATOCRIT 29.1 % (42.0-52.0); HEMOGLOBIN 8.9 g/dl (14.0-18.0); LYMPHOCYTES # 0.9 10^3/ul (0.8-2.9); LYMPHOCYTES % 20.3 % (15.0-51.0); MEAN CORPUSCULAR HEMOGLOBIN 28.8 pg (29.0-33.0); MEAN CORPUSCULAR HGB CONC 30.6 g/dl (32.0-37.0); MEAN CORPUSCULAR VOLUME 94.2 fl (82.0-101.0); MEAN PLATELET VOLUME 10.1 fl (7.4-10.4); MONOCYTE # 0.4 10^3/ul (0.3-0.9); MONOCYTES % 7.5 % (0.0-11.0); NEUTROPHIL # 2.9 10^3/ul (1.6-7.5); NEUTROPHILS % 62.9 % (39.0-77.0); PLATELET COUNT 167 10^3/UL (140-415); RED BLOOD COUNT 3.09 10^6/ul (4.70-6.10); RED CELL DISTRIBUTION WIDTH 13.3 % (11.5-14.5)
[2018-08-03 08:37] LABS: ANION GAP 7 (8-16); BLOOD UREA NITROGEN 11 mg/dl (7-20); CALCIUM 8.4 mg/dl (8.4-10.2); CARBON DIOXIDE 39 mmol/L (21-31); CHLORIDE 98 mmol/L (97-110); CREATININE 0.64 mg/dl (0.61-1.24); GLUCOSE 123 mg/dl (70-220); POTASSIUM 4.1 mmol/L (3.5-5.1); SODIUM 140 mmol/L (135-144)
[2018-08-03] MEDS: VALPROIC ACID LIQUID CUP 250 MG/5 ML CUP GTB ×3 (08:37→21:08)
[2018-08-03] MEDS: metFORMIN 500 MG TAB GTB ×2 (08:37→18:01)
[2018-08-03] MEDS: FERROUS SULFATE (EC) 325 MG TAB PO (08:39)
[2018-08-03] MEDS: CEFEPIME 1GM/50 ML (PMX) 50 ML IVPB ×2 (08:41→21:08)
[2018-08-03] MEDS: LOSARTAN 25 MG TAB PO (08:41)
[2018-08-03] MEDS: MUPIROCIN 2% 22 GM OINT TOP ×2 (08:41→21:09)
[2018-08-03] MEDS: METOPROLOL 50 MG TAB GTB ×2 (08:41→21:08)
[2018-08-03] MEDS: ENOXAPARIN 60 MG/0.6 ML SYG SC ×2 (09:00→21:36)
[2018-08-03] MEDS: SOD CHLORIDE 0.45% 1,000 ML IV (12:41)
[2018-08-03] MEDS: FUROSEMIDE 20 MG INJ IV (15:01)
[2018-08-03] MEDS: FLUOCINONIDE 0.05% CR 30GM TUBE TOP (21:50)
[2018-08-04] MEDS: ALPRAZOLAM 0.5 MG TAB GTB ×6 (00:13→20:59)
[2018-08-04] MEDS: ALBUTEROL/IPRATROPIUM (NEB) 3 ML AMP HHN ×4 (01:33→19:13)
[2018-08-04] MEDS: PANTOPRAZOLE (EC) 40 MG TAB PO (05:17)
[2018-08-04] MEDS: INSULIN ASPART [NOVOLOG] 3 ML PEN SC ×4 (05:22→17:49)
[2018-08-04] MEDS: VANCOMYCIN 750 MG in SOD CHLORIDE 0.9% 150 ML IVPB (05:29)
[2018-08-04] MEDS: LOSARTAN 25 MG TAB PO (08:40)
[2018-08-04] MEDS: VALPROIC ACID LIQUID CUP 250 MG/5 ML CUP GTB ×3 (08:40→20:58)
[2018-08-04] MEDS: METOPROLOL 50 MG TAB GTB ×2 (08:40→20:59)
[2018-08-04] MEDS: metFORMIN 500 MG TAB GTB ×2 (08:40→17:50)
[2018-08-04] MEDS: CEFEPIME 1GM/50 ML (PMX) 50 ML IVPB ×2 (08:41→21:01)
[2018-08-04] MEDS: MUPIROCIN 2% 22 GM OINT TOP ×2 (08:41→21:01)
[2018-08-04] MEDS: FERROUS SULFATE (EC) 325 MG TAB PO (08:41)
[2018-08-04] MEDS: ENOXAPARIN 60 MG/0.6 ML SYG SC ×2 (09:06→21:11)
[2018-08-04] MEDS: SOD CHLORIDE 0.45% 1,000 ML IV (13:09)
[2018-08-04] MEDS: FLUOCINONIDE 0.05% CR 30GM TUBE TOP (20:59)
[2018-08-05] MEDS: ALBUTEROL/IPRATROPIUM (NEB) 3 ML AMP HHN ×4 (01:11→19:40)
[2018-08-05] MEDS: ALPRAZOLAM 0.5 MG TAB GTB ×6 (02:23→20:34)
[2018-08-05] MEDS: PANTOPRAZOLE (EC) 40 MG TAB PO (05:15)
[2018-08-05] MEDS: hydrALAzine 20 MG INJ IV (05:16)
[2018-08-05] MEDS: INSULIN ASPART [NOVOLOG] 3 ML PEN SC ×4 (06:00→17:59)
[2018-08-05 06:34] LABS: ADD MAN DIFF? NO
[2018-08-05 06:38] LABS: WHITE BLOOD COUNT 7.8 10^3/ul (4.8-10.8)
[2018-08-05 06:38] LABS: BASOPHILS % 0.3 % (0.0-2.0); EOSINOPHILS # 0.3 10^3/ul (0.0-0.5); EOSINOPHILS % 4.3 % (0.0-7.0); HEMATOCRIT 34.3 % (42.0-52.0); HEMOGLOBIN 10.4 g/dl (14.0-18.0); LYMPHOCYTES # 1.7 10^3/ul (0.8-2.9); LYMPHOCYTES % 21.6 % (15.0-51.0); MEAN CORPUSCULAR HEMOGLOBIN 28.3 pg (29.0-33.0); MEAN CORPUSCULAR HGB CONC 30.3 g/dl (32.0-37.0); MEAN CORPUSCULAR VOLUME 93.5 fl (82.0-101.0); MEAN PLATELET VOLUME 10.1 fl (7.4-10.4); MONOCYTE # 0.5 10^3/ul (0.3-0.9); MONOCYTES % 6.8 % (0.0-11.0); NEUTROPHIL # 5.2 10^3/ul (1.6-7.5); NEUTROPHILS % 65.8 % (39.0-77.0); PLATELET COUNT 178 10^3/UL (140-415); RED BLOOD COUNT 3.67 10^6/ul (4.70-6.10); RED CELL DISTRIBUTION WIDTH 13.4 % (11.5-14.5)
[2018-08-05 07:04] LABS: ANION GAP 9 (8-16); BLOOD UREA NITROGEN 13 mg/dl (7-20); CALCIUM 8.9 mg/dl (8.4-10.2); CARBON DIOXIDE 39 mmol/L (21-31); CHLORIDE 92 mmol/L (97-110); CREATININE 0.62 mg/dl (0.61-1.24); GLUCOSE 124 mg/dl (70-220); POTASSIUM 3.7 mmol/L (3.5-5.1); SODIUM 136 mmol/L (135-144)
[2018-08-05] MEDS: METOCLOPRAMIDE 10 MG TAB GTB (08:10)
[2018-08-05] MEDS: VALPROIC ACID LIQUID CUP 250 MG/5 ML CUP GTB ×3 (08:45→20:33)
[2018-08-05] MEDS: FERROUS SULFATE (EC) 325 MG TAB PO (08:46)
[2018-08-05] MEDS: metFORMIN 500 MG TAB GTB ×2 (08:46→17:48)
[2018-08-05] MEDS: LOSARTAN 25 MG TAB PO (08:47)
[2018-08-05] MEDS: METOPROLOL 50 MG TAB GTB ×3 (08:47→20:35)
[2018-08-05] MEDS: MUPIROCIN 2% 22 GM OINT TOP ×2 (08:55→20:34)
[2018-08-05] MEDS: ENOXAPARIN 60 MG/0.6 ML SYG SC ×2 (09:22→20:37)
[2018-08-05] MEDS: SOD CHLORIDE 0.45% 1,000 ML IV (12:25)
[2018-08-05] MEDS: CEFEPIME 1GM/50 ML (PMX) 50 ML IVPB (20:33)
[2018-08-05] MEDS: FLUOCINONIDE 0.05% CR 30GM TUBE TOP (20:34)
[2018-08-06] MEDS: ALPRAZOLAM 0.5 MG TAB GTB ×6 (00:51→20:18)
[2018-08-06] MEDS: ALBUTEROL/IPRATROPIUM (NEB) 3 ML AMP HHN ×5 (02:46→20:16)
[2018-08-06] MEDS: PANTOPRAZOLE (EC) 40 MG TAB PO (05:36)
[2018-08-06] MEDS: METOPROLOL 50 MG TAB GTB ×3 (05:37→21:19)
[2018-08-06] MEDS: INSULIN ASPART [NOVOLOG] 3 ML PEN SC ×4 (05:37→17:24)
[2018-08-06] MEDS: CEFEPIME 1GM/50 ML (PMX) 50 ML IVPB ×2 (08:43→20:19)
[2018-08-06] MEDS: VALPROIC ACID LIQUID CUP 250 MG/5 ML CUP GTB ×3 (08:43→20:18)
[2018-08-06] MEDS: FERROUS SULFATE (EC) 325 MG TAB PO (08:43)
[2018-08-06] MEDS: metFORMIN 500 MG TAB GTB ×2 (08:43→17:25)
[2018-08-06] MEDS: LOSARTAN 25 MG TAB PO ×2 (08:44→20:18)
[2018-08-06] MEDS: ENOXAPARIN 60 MG/0.6 ML SYG SC ×2 (08:48→21:24)
[2018-08-06] MEDS: MUPIROCIN 2% 22 GM OINT TOP ×2 (08:50→21:19)
[2018-08-06 08:57] LABS: AADO2 Arterial 224.9 mmHg (7.0-24.0); Allen Test ACCEPTAB; Arterial Base Excess 11.9 mmol/L (-3.0-3); Arterial Blood Gas Oxygen Sat 95.4 mmHG (95.0-100.0); Arterial COHb 0.3 % (0.0-3.0); Arterial Fraction of Oxyhgb 94.8 % (93.0-99.0); Arterial HCO3 39.1 mmol/L (22.0-26.0); Arterial MetHb 0.3 % (0.0-1.5); Arterial Total Hemglobin 11.6 g/dl (12.0-18.0); Arterial pCO2 65.2 mmhg (35-45); MODE MASK - SIMPLE; Site Left Radial
[2018-08-06] MEDS: FUROSEMIDE 20 MG INJ IV (13:18)
[2018-08-06] MEDS: METOCLOPRAMIDE 10 MG TAB GTB (21:18)
[2018-08-06] MEDS: FLUOCINONIDE 0.05% CR 30GM TUBE TOP (21:19)
[2018-08-06] MEDS: ACETAMINOPHEN 325 MG TAB GTB (22:04)
[2018-08-06] MEDS ORDERED: VANCOMYCIN IV PER PHARMACY XX (22:30)
[2018-08-06] MEDS: MEROPENEM 1 GM/50ML(PMX) 50 ML IVPB (23:11)
[2018-08-06 23:21] LABS: LACTIC ACID 1.3 mmol/L (0.5-2.0)
[2018-08-07] MEDS: VANCOMYCIN 1.25 GM in SOD CHLORIDE 0.9% 250 ML IVPB (00:17)
[2018-08-07] MEDS: ALPRAZOLAM 0.5 MG TAB GTB ×6 (00:28→20:57)
[2018-08-07] MEDS: ALBUTEROL/IPRATROPIUM (NEB) 3 ML AMP HHN ×4 (01:48→19:36)
[2018-08-07] MEDS: MEROPENEM 1 GM/50ML(PMX) 50 ML IVPB ×3 (05:54→21:06)
[2018-08-07] MEDS: ACETAMINOPHEN 325 MG TAB GTB ×2 (05:55→20:57)
[2018-08-07] MEDS: PANTOPRAZOLE (EC) 40 MG TAB PO (05:56)
[2018-08-07] MEDS: METOPROLOL 50 MG TAB GTB ×3 (05:57→21:07)
[2018-08-07] MEDS: INSULIN ASPART [NOVOLOG] 3 ML PEN SC ×5 (06:09→23:00)
[2018-08-07 07:16] LABS: ADD MAN DIFF? NO
[2018-08-07 07:22] LABS: WHITE BLOOD COUNT 15.9 10^3/ul (4.8-10.8)
[2018-08-07 07:22] LABS: BASOPHILS % 0.1 % (0.0-2.0); EOSINOPHILS % 0.1 % (0.0-7.0); HEMATOCRIT 24.2 % (42.0-52.0); HEMOGLOBIN 7.4 g/dl (14.0-18.0); LYMPHOCYTES # 0.7 10^3/ul (0.8-2.9); LYMPHOCYTES % 4.1 % (15.0-51.0); MEAN CORPUSCULAR HEMOGLOBIN 28.9 pg (29.0-33.0); MEAN CORPUSCULAR HGB CONC 30.6 g/dl (32.0-37.0); MEAN CORPUSCULAR VOLUME 94.5 fl (82.0-101.0); MEAN PLATELET VOLUME 11.2 fl (7.4-10.4); MONOCYTE # 0.7 10^3/ul (0.3-0.9); MONOCYTES % 4.6 % (0.0-11.0); NEUTROPHIL # 14.3 10^3/ul (1.6-7.5); PLATELET COUNT 130 10^3/UL (140-415); POSITIVE DIFF @See below; RED BLOOD COUNT 2.56 10^6/ul (4.70-6.10); RED CELL DISTRIBUTION WIDTH 13.7 % (11.5-14.5)
[2018-08-07 07:33] LABS: NEUTROPHILS % 90.4 % (39.0-77.0)
[2018-08-07 07:55] LABS: BLOOD UREA NITROGEN 25 mg/dl (7-20); CALCIUM 8.7 mg/dl (8.4-10.2); CHLORIDE 91 mmol/L (97-110); GLUCOSE 153 mg/dl (70-220); POTASSIUM 3.9 mmol/L (3.5-5.1); SODIUM 134 mmol/L (135-144)
[2018-08-07 08:04] LABS: ANION GAP 5 (8-16); CARBON DIOXIDE 42 mmol/L (21-31)
[2018-08-07] MEDS: metFORMIN 500 MG TAB GTB ×2 (08:53→17:42)
[2018-08-07] MEDS: VALPROIC ACID LIQUID CUP 250 MG/5 ML CUP GTB ×3 (08:54→20:57)
[2018-08-07] MEDS: FERROUS SULFATE (EC) 325 MG TAB PO (08:54)
[2018-08-07] MEDS: LOSARTAN 25 MG TAB PO ×2 (08:54→21:07)
[2018-08-07] MEDS: ENOXAPARIN 60 MG/0.6 ML SYG SC ×2 (09:10→21:41)
[2018-08-07] MEDS: MUPIROCIN 2% 22 GM OINT TOP ×2 (09:10→21:06)
[2018-08-07] MEDS: VANCOMYCIN 750 MG in SOD CHLORIDE 0.9% 150 ML IVPB ×2 (12:43→23:00)
[2018-08-07] MEDS: FLUOCINONIDE 0.05% CR 30GM TUBE TOP (21:06)
[2018-08-08] MEDS: ALPRAZOLAM 0.5 MG TAB GTB ×7 (00:32→21:37)
[2018-08-08] MEDS: ALBUTEROL/IPRATROPIUM (NEB) 3 ML AMP HHN ×4 (01:49→20:00)
[2018-08-08] MEDS: MEROPENEM 1 GM/50ML(PMX) 50 ML IVPB ×3 (05:47→21:41)
[2018-08-08] MEDS: INSULIN ASPART [NOVOLOG] 3 ML PEN SC ×3 (05:47→17:29)
[2018-08-08] MEDS: LANSOPRAZOLE 30 MG CAP GTB (07:01)
[2018-08-08] MEDS: METOPROLOL 50 MG TAB GTB ×3 (07:01→21:41)
[2018-08-08] MEDS: metFORMIN 500 MG TAB GTB ×2 (08:33→17:29)
[2018-08-08] MEDS: VALPROIC ACID LIQUID CUP 250 MG/5 ML CUP GTB ×3 (09:09→21:37)
[2018-08-08] MEDS: FERROUS SULFATE (EC) 325 MG TAB PO (09:10)
[2018-08-08] MEDS: MUPIROCIN 2% 22 GM OINT TOP ×2 (09:10→21:42)
[2018-08-08] MEDS: LOSARTAN 25 MG TAB PO ×2 (09:11→21:40)
[2018-08-08] MEDS: ENOXAPARIN 60 MG/0.6 ML SYG SC ×2 (09:26→21:45)
[2018-08-08 13:14] LABS: VANCOMYCIN,TROUGH 12.5 ug/ml (10.0-20.0)
[2018-08-08] MEDS: VANCOMYCIN 750 MG in SOD CHLORIDE 0.9% 150 ML IVPB (13:40)
[2018-08-08] MEDS: FLUOCINONIDE 0.05% CR 30GM TUBE TOP (21:42)
[2018-08-09] MEDS: VANCOMYCIN 750 MG in SOD CHLORIDE 0.9% 150 ML IVPB ×2 (01:07→12:28)
[2018-08-09] MEDS: ALPRAZOLAM 0.5 MG TAB GTB ×6 (01:14→21:47)
[2018-08-09] MEDS: ALBUTEROL/IPRATROPIUM (NEB) 3 ML AMP HHN ×4 (01:29→20:14)
[2018-08-09 06:00] LABS: ADD MAN DIFF? NO
[2018-08-09] MEDS: INSULIN ASPART [NOVOLOG] 3 ML PEN SC ×4 (06:00→17:53)
[2018-08-09] MEDS: LANSOPRAZOLE 30 MG CAP GTB (06:02)
[2018-08-09] MEDS: MEROPENEM 1 GM/50ML(PMX) 50 ML IVPB ×3 (06:04→21:44)
[2018-08-09] MEDS: METOPROLOL 50 MG TAB GTB ×3 (06:07→21:51)
[2018-08-09 06:09] LABS: BASOPHILS % 0.2 % (0.0-2.0); EOSINOPHILS # 0.1 10^3/ul (0.0-0.5); EOSINOPHILS % 0.8 % (0.0-7.0); HEMATOCRIT 26.8 % (42.0-52.0); HEMOGLOBIN 8.3 g/dl (14.0-18.0); LYMPHOCYTES # 0.8 10^3/ul (0.8-2.9); LYMPHOCYTES % 9.5 % (15.0-51.0); MEAN CORPUSCULAR HEMOGLOBIN 29.1 pg (29.0-33.0); MEAN PLATELET VOLUME 11.4 fl (7.4-10.4); MONOCYTE # 0.7 10^3/ul (0.3-0.9); MONOCYTES % 8.1 % (0.0-11.0); NEUTROPHIL # 7.2 10^3/ul (1.6-7.5); NEUTROPHILS % 81.1 % (39.0-77.0); PLATELET COUNT 145 10^3/UL (140-415); RED BLOOD COUNT 2.85 10^6/ul (4.70-6.10); RED CELL DISTRIBUTION WIDTH 13.4 % (11.5-14.5)
[2018-08-09 06:09] LABS: WHITE BLOOD COUNT 8.9 10^3/ul (4.8-10.8)
[2018-08-09 06:39] LABS: ALANINE AMINOTRANSFERASE 18 IU/L (13-69); ALBUMIN 2.5 g/dl (3.3-4.9); ALBUMIN/GLOBULIN RATIO 0.86; ALKALINE PHOSPHATASE 63 IU/L (42-121); ANION GAP 7 (8-16); ASPARTATE AMINO TRANSFERASE 19 IU/L (15-46); BILIRUBIN,INDIRECT 0.2 mg/dl (0-1.1); BILIRUBIN,TOTAL 0.2 mg/dl (0.2-1.3); BLOOD UREA NITROGEN 17 mg/dl (7-20); CALCIUM 8.9 mg/dl (8.4-10.2); CARBON DIOXIDE 39 mmol/L (21-31); CHLORIDE 94 mmol/L (97-110); CREATININE 0.62 mg/dl (0.61-1.24); GLUCOSE 124 mg/dl (70-220); POTASSIUM 4.5 mmol/L (3.5-5.1); SODIUM 135 mmol/L (135-144); TOTAL PROTEIN 5.4 g/dl (6.1-8.1)
[2018-08-09 06:41] LABS: MAGNESIUM 1.8 mg/dl (1.7-2.5)
[2018-08-09] MEDS: metFORMIN 500 MG TAB GTB ×2 (08:53→17:52)
[2018-08-09] MEDS: VALPROIC ACID LIQUID CUP 250 MG/5 ML CUP GTB ×3 (08:58→21:44)
[2018-08-09] MEDS: FERROUS SULFATE (EC) 325 MG TAB PO (08:58)
[2018-08-09] MEDS: MUPIROCIN 2% 22 GM OINT TOP ×2 (08:59→21:48)
[2018-08-09] MEDS: LOSARTAN 25 MG TAB PO ×2 (09:01→21:47)
[2018-08-09] MEDS: ENOXAPARIN 60 MG/0.6 ML SYG SC ×2 (09:42→22:26)
[2018-08-09] MEDS: MAGNESIUM SULFATE 2 GM/50 ML 50 ML IVPB (13:42)
[2018-08-09] MEDS: FLUOCINONIDE 0.05% CR 30GM TUBE TOP (21:49)
[2018-08-10] MEDS: VANCOMYCIN 750 MG in SOD CHLORIDE 0.9% 150 ML IVPB ×2 (00:05→12:30)
[2018-08-10] MEDS: ALPRAZOLAM 0.5 MG TAB GTB ×6 (01:30→21:32)
[2018-08-10] MEDS: ALBUTEROL/IPRATROPIUM (NEB) 3 ML AMP HHN ×4 (02:05→19:41)
[2018-08-10] MEDS: HYDROCORTISONE 100 MG INJ IV (02:42)
[2018-08-10] MEDS: FUROSEMIDE 40 MG INJ IV (03:23)
[2018-08-10] MEDS: MEROPENEM 1 GM/50ML(PMX) 50 ML IVPB ×3 (05:54→21:51)
[2018-08-10] MEDS: METOPROLOL 50 MG TAB GTB ×3 (05:55→21:32)
[2018-08-10] MEDS: LANSOPRAZOLE 30 MG CAP GTB (06:09)
[2018-08-10 06:49] LABS: ADD MAN DIFF? NO
[2018-08-10] MEDS: INSULIN ASPART [NOVOLOG] 3 ML PEN SC ×4 (06:49→17:55)
[2018-08-10 06:55] LABS: ABNORMAL IP MESSAGE 1; BASOPHILS % 0.1 % (0.0-2.0); EOSINOPHILS % 0.1 % (0.0-7.0); HEMATOCRIT 27.1 % (42.0-52.0); HEMOGLOBIN 8.4 g/dl (14.0-18.0); LYMPHOCYTES # 0.4 10^3/ul (0.8-2.9); LYMPHOCYTES % 2.9 % (15.0-51.0); MEAN CORPUSCULAR HEMOGLOBIN 29.3 pg (29.0-33.0); MEAN CORPUSCULAR VOLUME 94.4 fl (82.0-101.0); MONOCYTE # 0.8 10^3/ul (0.3-0.9); MONOCYTES % 5.5 % (0.0-11.0); PLATELET COUNT 181 10^3/UL (140-415); POSITIVE DIFF @See below; RED BLOOD COUNT 2.87 10^6/ul (4.70-6.10); RED CELL DISTRIBUTION WIDTH 13.2 % (11.5-14.5)
[2018-08-10 06:55] LABS: WHITE BLOOD COUNT 14.3 10^3/ul (4.8-10.8)
[2018-08-10 07:36] LABS: ANION GAP 8 (8-16); BLOOD UREA NITROGEN 19 mg/dl (7-20); CALCIUM 8.9 mg/dl (8.4-10.2); CARBON DIOXIDE 39 mmol/L (21-31); CHLORIDE 90 mmol/L (97-110); CREATININE 0.71 mg/dl (0.61-1.24); GLUCOSE 167 mg/dl (70-220); POTASSIUM 3.9 mmol/L (3.5-5.1); SODIUM 133 mmol/L (135-144)
[2018-08-10] MEDS: LOSARTAN 25 MG TAB PO ×2 (08:44→21:31)
[2018-08-10] MEDS: VALPROIC ACID LIQUID CUP 250 MG/5 ML CUP GTB ×3 (08:44→21:31)
[2018-08-10] MEDS: metFORMIN 500 MG TAB GTB ×2 (08:44→17:50)
[2018-08-10] MEDS: FERROUS SULFATE (EC) 325 MG TAB PO (08:44)
[2018-08-10] MEDS: METHYLPREDNISOLONE 40 MG INJ IV ×2 (08:45→21:31)
[2018-08-10] MEDS: ENOXAPARIN 60 MG/0.6 ML SYG SC ×2 (08:55→21:49)
[2018-08-10] MEDS: MUPIROCIN 2% 22 GM OINT TOP ×2 (12:30→21:33)
[2018-08-10] MEDS: FLUOCINONIDE 0.05% CR 30GM TUBE TOP (21:33)
[2018-08-11] MEDS: VANCOMYCIN 750 MG in SOD CHLORIDE 0.9% 150 ML IVPB ×3 (01:07→23:30)
[2018-08-11] MEDS: ALPRAZOLAM 0.5 MG TAB GTB ×6 (01:07→20:02)
[2018-08-11] MEDS: INSULIN ASPART [NOVOLOG] 3 ML PEN SC ×5 (01:18→23:30)
[2018-08-11] MEDS: ALBUTEROL/IPRATROPIUM (NEB) 3 ML AMP HHN ×4 (02:00→20:30)
[2018-08-11] MEDS: LANSOPRAZOLE 30 MG CAP GTB (05:39)
[2018-08-11] MEDS: MEROPENEM 1 GM/50ML(PMX) 50 ML IVPB ×3 (05:40→20:48)
[2018-08-11] MEDS: METOPROLOL 50 MG TAB GTB ×3 (05:42→20:03)
[2018-08-11] MEDS: FUROSEMIDE 40 MG INJ IV ×2 (05:43→12:57)
[2018-08-11] MEDS: FERROUS SULFATE (EC) 325 MG TAB PO (08:44)
[2018-08-11] MEDS: METHYLPREDNISOLONE 40 MG INJ IV ×2 (08:44→20:02)
[2018-08-11] MEDS: LOSARTAN 25 MG TAB PO ×2 (08:44→20:02)
[2018-08-11] MEDS: VALPROIC ACID LIQUID CUP 250 MG/5 ML CUP GTB ×3 (08:44→20:01)
[2018-08-11] MEDS: POTASSIUM CHLORIDE (SR) 20 MEQ TAB PO (08:44)
[2018-08-11] MEDS: MUPIROCIN 2% 22 GM OINT TOP ×2 (08:45→20:03)
[2018-08-11] MEDS: ENOXAPARIN 60 MG/0.6 ML SYG SC ×2 (08:52→20:20)
[2018-08-11] MEDS: metFORMIN 500 MG TAB GTB ×2 (08:57→17:53)
[2018-08-11 09:14] LABS: ADD MAN DIFF? NO
[2018-08-11 09:26] LABS: BASOPHILS % 0.1 % (0.0-2.0); HEMATOCRIT 23.8 % (42.0-52.0); HEMOGLOBIN 7.2 g/dl (14.0-18.0); LYMPHOCYTES # 0.7 10^3/ul (0.8-2.9); LYMPHOCYTES % 8.1 % (15.0-51.0); MEAN CORPUSCULAR HEMOGLOBIN 28.2 pg (29.0-33.0); MEAN CORPUSCULAR HGB CONC 30.3 g/dl (32.0-37.0); MEAN CORPUSCULAR VOLUME 93.3 fl (82.0-101.0); MEAN PLATELET VOLUME 11.4 fl (7.4-10.4); MONOCYTE # 0.4 10^3/ul (0.3-0.9); MONOCYTES % 4.6 % (0.0-11.0); NEUTROPHILS % 86.7 % (39.0-77.0); PLATELET COUNT 175 10^3/UL (140-415); RED BLOOD COUNT 2.55 10^6/ul (4.70-6.10); RED CELL DISTRIBUTION WIDTH 13.2 % (11.5-14.5)
[2018-08-11 09:26] LABS: WHITE BLOOD COUNT 9.2 10^3/ul (4.8-10.8)
[2018-08-11 09:45] LABS: BLOOD UREA NITROGEN 24 mg/dl (7-20); CHLORIDE 89 mmol/L (97-110); CREATININE 0.71 mg/dl (0.61-1.24); GLUCOSE 156 mg/dl (70-220); POTASSIUM 4.3 mmol/L (3.5-5.1); SODIUM 134 mmol/L (135-144)
[2018-08-11 09:56] LABS: ANION GAP 9 (8-16)
[2018-08-11 10:01] LABS: CARBON DIOXIDE 40 mmol/L (21-31)
[2018-08-11] MEDS: DILTIAZEM 25 MG INJ IV (10:53)
[2018-08-11 12:35] LABS: VANCOMYCIN,TROUGH 15.2 ug/ml (10.0-20.0)
[2018-08-11] MEDS ORDERED: DILTIAZEM 25 MG INJ IV (14:00)
[2018-08-11] MEDS: DIGOXIN 500 MCG INJ IV ×2 (14:18→20:01)
[2018-08-11 17:17] LABS: IMMEDIATE SPIN CROSSMATCH 1 1
[2018-08-11] MEDS: SOD CHLORIDE 0.9% 250 ML IV* (17:33)
[2018-08-11] MEDS: FLUOCINONIDE 0.05% CR 30GM TUBE TOP (20:04)
[2018-08-11] MEDS: FUROSEMIDE 20 MG INJ IV (20:48)
[2018-08-12] MEDS: ALPRAZOLAM 0.5 MG TAB GTB ×6 (01:00→21:09)
[2018-08-12] MEDS: ALBUTEROL/IPRATROPIUM (NEB) 3 ML AMP HHN ×4 (01:59→20:40)
[2018-08-12] MEDS: MEROPENEM 1 GM/50ML(PMX) 50 ML IVPB ×3 (05:22→21:10)
[2018-08-12] MEDS: METOPROLOL 50 MG TAB GTB ×3 (05:23→21:11)
[2018-08-12] MEDS: LANSOPRAZOLE 30 MG CAP GTB (05:24)
[2018-08-12] MEDS: INSULIN ASPART [NOVOLOG] 3 ML PEN SC ×3 (05:42→17:59)
[2018-08-12 06:41] LABS: ADD MAN DIFF? NO
[2018-08-12 06:55] LABS: BASOPHILS % 0.1 % (0.0-2.0); HEMATOCRIT 28.3 % (42.0-52.0); HEMOGLOBIN 8.8 g/dl (14.0-18.0); LYMPHOCYTES # 0.9 10^3/ul (0.8-2.9); LYMPHOCYTES % 9.7 % (15.0-51.0); MEAN CORPUSCULAR HEMOGLOBIN 29.2 pg (29.0-33.0); MEAN CORPUSCULAR HGB CONC 31.1 g/dl (32.0-37.0); MEAN PLATELET VOLUME 11.2 fl (7.4-10.4); MONOCYTE # 0.6 10^3/ul (0.3-0.9); MONOCYTES % 6.3 % (0.0-11.0); NEUTROPHIL # 7.8 10^3/ul (1.6-7.5); NEUTROPHILS % 82.3 % (39.0-77.0); PLATELET COUNT 225 10^3/UL (140-415); RED BLOOD COUNT 3.01 10^6/ul (4.70-6.10); RED CELL DISTRIBUTION WIDTH 13.6 % (11.5-14.5)
[2018-08-12 06:55] LABS: WHITE BLOOD COUNT 9.5 10^3/ul (4.8-10.8)
[2018-08-12 07:18] LABS: BLOOD UREA NITROGEN 30 mg/dl (7-20); CHLORIDE 90 mmol/L (97-110); CREATININE 0.74 mg/dl (0.61-1.24); GLUCOSE 162 mg/dl (70-220); POTASSIUM 4.6 mmol/L (3.5-5.1); SODIUM 138 mmol/L (135-144)
[2018-08-12 07:32] LABS: ANION GAP 9 (8-16); CARBON DIOXIDE 44 mmol/L (21-31)
[2018-08-12] MEDS: VALPROIC ACID LIQUID CUP 250 MG/5 ML CUP GTB ×3 (08:09→21:08)
[2018-08-12] MEDS: FERROUS SULFATE (EC) 325 MG TAB PO (08:10)
[2018-08-12] MEDS: POTASSIUM CHLORIDE (SR) 20 MEQ TAB PO (08:10)
[2018-08-12] MEDS: METHYLPREDNISOLONE 40 MG INJ IV ×3 (08:10→21:12)
[2018-08-12] MEDS: FUROSEMIDE 40 MG INJ IV (08:10)
[2018-08-12] MEDS: LOSARTAN 25 MG TAB PO ×2 (08:11→21:11)
[2018-08-12] MEDS: MUPIROCIN 2% 22 GM OINT TOP ×2 (08:11→21:16)
[2018-08-12] MEDS: ENOXAPARIN 60 MG/0.6 ML SYG SC ×2 (08:36→21:15)
[2018-08-12] MEDS: metFORMIN 500 MG TAB GTB ×2 (08:37→17:35)
[2018-08-12] MEDS: VANCOMYCIN 750 MG in SOD CHLORIDE 0.9% 150 ML IVPB (12:47)
[2018-08-12] MEDS: DILTIAZEM 30 MG TAB PO ×2 (14:04→21:10)
[2018-08-12] MEDS: FLUOCINONIDE 0.05% CR 30GM TUBE TOP (21:15)
[2018-08-13] MEDS: VANCOMYCIN 750 MG in SOD CHLORIDE 0.9% 150 ML IVPB ×2 (00:01→12:40)
[2018-08-13] MEDS: INSULIN ASPART [NOVOLOG] 3 ML PEN SC ×6 (00:12→20:40)
[2018-08-13] MEDS: ALPRAZOLAM 0.5 MG TAB GTB ×6 (00:44→20:38)
[2018-08-13] MEDS: ALBUTEROL/IPRATROPIUM (NEB) 3 ML AMP HHN ×4 (02:08→19:22)
[2018-08-13] MEDS: METHYLPREDNISOLONE 40 MG INJ IV ×3 (05:44→21:32)
[2018-08-13] MEDS: MEROPENEM 1 GM/50ML(PMX) 50 ML IVPB ×3 (05:44→21:25)
[2018-08-13] MEDS: METOPROLOL 50 MG TAB GTB ×3 (05:45→21:33)
[2018-08-13] MEDS: DILTIAZEM 30 MG TAB PO ×3 (05:45→21:32)
[2018-08-13] MEDS: LANSOPRAZOLE 30 MG CAP GTB (05:46)
[2018-08-13] MEDS: FUROSEMIDE 40 MG INJ IV (08:53)
[2018-08-13] MEDS: FERROUS SULFATE (EC) 325 MG TAB PO (08:53)
[2018-08-13] MEDS: LOSARTAN 25 MG TAB PO ×2 (08:53→20:39)
[2018-08-13] MEDS: metFORMIN 500 MG TAB GTB ×2 (08:53→18:34)
[2018-08-13] MEDS: VALPROIC ACID LIQUID CUP 250 MG/5 ML CUP GTB ×3 (08:53→20:39)
[2018-08-13] MEDS: MUPIROCIN 2% 22 GM OINT TOP (08:54)
[2018-08-13] MEDS: POTASSIUM CHLORIDE (SR) 20 MEQ TAB PO (08:54)
[2018-08-13] MEDS: ENOXAPARIN 60 MG/0.6 ML SYG SC ×2 (10:22→20:37)
[2018-08-13 15:43] LABS: AADO2 Arterial 339.5 mmHg (7.0-24.0); Allen Test ACCEPTAB; Arterial Base Excess 17.3 mmol/L (-3.0-3); Arterial Blood Gas Oxygen Sat 94.9 mmHG (95.0-100.0); Arterial COHb 0.3 % (0.0-3.0); Arterial Fraction of Oxyhgb 94.4 % (93.0-99.0); Arterial HCO3 44.7 mmol/L (22.0-26.0); Arterial MetHb 0.2 % (0.0-1.5); Arterial Total Hemglobin 10.6 g/dl (12.0-18.0); Arterial pCO2 70.3 mmhg (35-45); MODE MASK - SIMPLE; Site Left Radial
[2018-08-13] MEDS: FLUOCINONIDE 0.05% CR 30GM TUBE TOP (21:00)
[2018-08-14] MEDS: ALPRAZOLAM 0.5 MG TAB GTB ×6 (00:46→22:14)
[2018-08-14] MEDS: VANCOMYCIN 750 MG in SOD CHLORIDE 0.9% 150 ML IVPB ×2 (00:46→12:03)
[2018-08-14] MEDS: INSULIN ASPART [NOVOLOG] 3 ML PEN SC ×6 (00:47→21:00)
[2018-08-14] MEDS: ALBUTEROL/IPRATROPIUM (NEB) 3 ML AMP HHN ×4 (02:08→20:18)
[2018-08-14] MEDS: MEROPENEM 1 GM/50ML(PMX) 50 ML IVPB ×3 (05:23→22:07)
[2018-08-14] MEDS: LANSOPRAZOLE 30 MG CAP GTB (05:23)
[2018-08-14] MEDS: METOPROLOL 50 MG TAB GTB ×3 (05:23→22:07)
[2018-08-14] MEDS: METHYLPREDNISOLONE 40 MG INJ IV (05:23)
[2018-08-14] MEDS: DILTIAZEM 30 MG TAB PO ×3 (05:24→22:08)
[2018-08-14 06:53] LABS: ADD MAN DIFF? NO
[2018-08-14 06:56] LABS: WHITE BLOOD COUNT 6.4 10^3/ul (4.8-10.8)
[2018-08-14 06:56] LABS: BASOPHILS % 0.2 % (0.0-2.0); HEMOGLOBIN 8.9 g/dl (14.0-18.0); LYMPHOCYTES # 0.8 10^3/ul (0.8-2.9); LYMPHOCYTES % 12.9 % (15.0-51.0); MEAN CORPUSCULAR HEMOGLOBIN 28.6 pg (29.0-33.0); MEAN CORPUSCULAR HGB CONC 30.7 g/dl (32.0-37.0); MEAN CORPUSCULAR VOLUME 93.2 fl (82.0-101.0); MEAN PLATELET VOLUME 11.2 fl (7.4-10.4); MONOCYTE # 0.6 10^3/ul (0.3-0.9); MONOCYTES % 9.3 % (0.0-11.0); NEUTROPHIL # 4.7 10^3/ul (1.6-7.5); NEUTROPHILS % 73.6 % (39.0-77.0); PLATELET COUNT 243 10^3/UL (140-415); RED BLOOD COUNT 3.11 10^6/ul (4.70-6.10); RED CELL DISTRIBUTION WIDTH 13.2 % (11.5-14.5)
[2018-08-14 07:46] LABS: BLOOD UREA NITROGEN 41 mg/dl (7-20); CALCIUM 9.1 mg/dl (8.4-10.2); CHLORIDE 85 mmol/L (97-110); CREATININE 0.75 mg/dl (0.61-1.24); GLUCOSE 171 mg/dl (70-220); POTASSIUM 4.7 mmol/L (3.5-5.1); SODIUM 134 mmol/L (135-144)
[2018-08-14 08:03] LABS: ANION GAP 7 (8-16)
[2018-08-14 08:06] LABS: CARBON DIOXIDE 47 mmol/L (21-31)
[2018-08-14 08:47] LABS: AADO2 Arterial 241.8 mmHg (7.0-24.0); Allen Test ACCEPTAB; Arterial Base Excess 19.4 mmol/L (-3.0-3); Arterial Blood Gas Oxygen Sat 97.5 mmHG (95.0-100.0); Arterial COHb 0.3 % (0.0-3.0); Arterial Fraction of Oxyhgb 97.1 % (93.0-99.0); Arterial HCO3 46.6 mmol/L (22.0-26.0); Arterial MetHb 0.1 % (0.0-1.5); Arterial Total Hemglobin 10.6 g/dl (12.0-18.0); Arterial pCO2 70.4 mmhg (35-45); Blood Gas IEPAP 18/8; MODE MASK - BIPAP; Site Left Radial
[2018-08-14] MEDS: LOSARTAN 25 MG TAB PO ×2 (08:51→22:04)
[2018-08-14] MEDS: VALPROIC ACID LIQUID CUP 250 MG/5 ML CUP GTB ×3 (08:51→22:04)
[2018-08-14] MEDS: metFORMIN 500 MG TAB GTB ×2 (08:51→16:46)
[2018-08-14] MEDS: FERROUS SULFATE (EC) 325 MG TAB PO (08:51)
[2018-08-14] MEDS: FUROSEMIDE 40 MG INJ IV (08:51)
[2018-08-14] MEDS: POTASSIUM CHLORIDE (SR) 20 MEQ TAB PO (08:52)
[2018-08-14] MEDS: ENOXAPARIN 60 MG/0.6 ML SYG SC ×2 (09:02→22:14)
[2018-08-14] MEDS: FLUOCINONIDE 0.05% CR 30GM TUBE TOP (22:06)
[2018-08-14 23:33] LABS: VANCOMYCIN,TROUGH 15.4 ug/ml (10.0-20.0)
[2018-08-15] MEDS: ALPRAZOLAM 0.5 MG TAB GTB ×6 (00:37→20:43)
[2018-08-15] MEDS: VANCOMYCIN 750 MG in SOD CHLORIDE 0.9% 150 ML IVPB ×2 (00:37→12:25)
[2018-08-15] MEDS: INSULIN ASPART [NOVOLOG] 3 ML PEN SC ×6 (00:58→20:46)
[2018-08-15] MEDS: ALBUTEROL/IPRATROPIUM (NEB) 3 ML AMP HHN ×4 (01:14→20:03)
[2018-08-15] MEDS: METOPROLOL 50 MG TAB GTB ×3 (06:00→21:34)
[2018-08-15] MEDS: DILTIAZEM 30 MG TAB PO ×3 (06:00→21:33)
[2018-08-15] MEDS: MEROPENEM 1 GM/50ML(PMX) 50 ML IVPB ×3 (06:04→21:33)
[2018-08-15] MEDS: LANSOPRAZOLE 30 MG CAP GTB (06:06)
[2018-08-15] MEDS: metFORMIN 500 MG TAB GTB ×2 (08:52→16:47)
[2018-08-15] MEDS: FERROUS SULFATE (EC) 325 MG TAB PO (08:53)
[2018-08-15] MEDS: LOSARTAN 25 MG TAB PO ×2 (08:53→20:44)
[2018-08-15] MEDS: POTASSIUM CHLORIDE (SR) 20 MEQ TAB PO (08:53)
[2018-08-15] MEDS: VALPROIC ACID LIQUID CUP 250 MG/5 ML CUP GTB ×3 (08:53→20:42)
[2018-08-15] MEDS: FUROSEMIDE 40 MG INJ IV (08:54)
[2018-08-15] MEDS: ENOXAPARIN 60 MG/0.6 ML SYG SC ×2 (09:25→20:44)
[2018-08-15 12:22] LABS: AADO2 Arterial 442.6 mmHg (7.0-24.0); Allen Test ACCEPTAB; Arterial Base Excess 20.4 mmol/L (-3.0-3); Arterial Blood Gas Oxygen Sat 99.2 mmHG (95.0-100.0); Arterial COHb 0.3 % (0.0-3.0); Arterial Fraction of Oxyhgb 98.6 % (93.0-99.0); Arterial HCO3 48.5 mmol/L (22.0-26.0); Arterial MetHb 0.3 % (0.0-1.5); Arterial Total Hemglobin 13.2 g/dl (12.0-18.0); Arterial pCO2 71.2 mmhg (35-45); Blood Gas PS 10; MODE MASK - BIPAP; Site Left Radial
[2018-08-15] MEDS: FLUOCINONIDE 0.05% CR 30GM TUBE TOP (20:46)
[2018-08-16] MEDS: VANCOMYCIN 750 MG in SOD CHLORIDE 0.9% 150 ML IVPB ×2 (00:10→12:37)
[2018-08-16] MEDS: ALPRAZOLAM 0.5 MG TAB GTB ×6 (00:24→21:00)
[2018-08-16] MEDS: INSULIN ASPART [NOVOLOG] 3 ML PEN SC ×6 (00:27→21:00)
[2018-08-16] MEDS: ALBUTEROL/IPRATROPIUM (NEB) 3 ML AMP HHN ×4 (01:42→19:37)
[2018-08-16] MEDS: METOPROLOL 50 MG TAB GTB ×3 (05:04→22:32)
[2018-08-16] MEDS: DILTIAZEM 30 MG TAB PO ×3 (05:05→22:32)
[2018-08-16] MEDS: LANSOPRAZOLE 30 MG CAP GTB (05:05)
[2018-08-16] MEDS: MEROPENEM 1 GM/50ML(PMX) 50 ML IVPB ×3 (05:05→22:32)
[2018-08-16] MEDS: LOSARTAN 25 MG TAB PO ×2 (08:32→21:00)
[2018-08-16] MEDS: FERROUS SULFATE (EC) 325 MG TAB PO (08:34)
[2018-08-16] MEDS: metFORMIN 500 MG TAB GTB ×2 (08:35→17:42)
[2018-08-16] MEDS: FUROSEMIDE 40 MG INJ IV (08:35)
[2018-08-16] MEDS: VALPROIC ACID LIQUID CUP 250 MG/5 ML CUP GTB ×3 (08:35→21:00)
[2018-08-16] MEDS: ENOXAPARIN 60 MG/0.6 ML SYG SC ×2 (08:49→21:00)
[2018-08-16 09:13] LABS: ADD MAN DIFF? NO
[2018-08-16 09:21] LABS: BASOPHILS % 0.4 % (0.0-2.0); EOSINOPHILS # 0.2 10^3/ul (0.0-0.5); EOSINOPHILS % 1.8 % (0.0-7.0); HEMATOCRIT 33.4 % (42.0-52.0); HEMOGLOBIN 10.4 g/dl (14.0-18.0); LYMPHOCYTES # 1.4 10^3/ul (0.8-2.9); LYMPHOCYTES % 12.6 % (15.0-51.0); MEAN CORPUSCULAR HEMOGLOBIN 29.3 pg (29.0-33.0); MEAN CORPUSCULAR HGB CONC 31.1 g/dl (32.0-37.0); MEAN CORPUSCULAR VOLUME 94.1 fl (82.0-101.0); MEAN PLATELET VOLUME 10.7 fl (7.4-10.4); MONOCYTE # 0.6 10^3/ul (0.3-0.9); MONOCYTES % 5.4 % (0.0-11.0); NEUTROPHIL # 8.1 10^3/ul (1.6-7.5); PLATELET COUNT 285 10^3/UL (140-415); RED BLOOD COUNT 3.55 10^6/ul (4.70-6.10); RED CELL DISTRIBUTION WIDTH 13.3 % (11.5-14.5)
[2018-08-16 09:21] LABS: WHITE BLOOD COUNT 10.8 10^3/ul (4.8-10.8)
[2018-08-16] MEDS: POTASSIUM CHLORIDE 20 MEQ POWDER FOR ORAL SOLN PO (09:45)
[2018-08-16 09:48] LABS: BLOOD UREA NITROGEN 34 mg/dl (7-20); CHLORIDE 86 mmol/L (97-110); CREATININE 0.83 mg/dl (0.61-1.24); GLUCOSE 136 mg/dl (70-220); POTASSIUM 4.4 mmol/L (3.5-5.1); SODIUM 134 mmol/L (135-144)
[2018-08-16 09:59] LABS: ANION GAP 6 (8-16)
[2018-08-16 10:01] LABS: CARBON DIOXIDE 46 mmol/L (21-31)
[2018-08-16] MEDS: FLUOCINONIDE 0.05% CR 30GM TUBE TOP (21:00)
[2018-08-17] MEDS: VANCOMYCIN 750 MG in SOD CHLORIDE 0.9% 150 ML IVPB ×2 (00:57→12:01)
[2018-08-17] MEDS: INSULIN ASPART [NOVOLOG] 3 ML PEN SC ×6 (01:00→20:27)
[2018-08-17] MEDS: ALBUTEROL/IPRATROPIUM (NEB) 3 ML AMP HHN ×4 (01:18→20:12)
[2018-08-17] MEDS: ALPRAZOLAM 0.5 MG TAB GTB ×6 (01:29→20:27)
[2018-08-17] MEDS: LANSOPRAZOLE 30 MG CAP GTB (05:05)
[2018-08-17] MEDS: DILTIAZEM 30 MG TAB PO ×3 (05:05→21:17)
[2018-08-17] MEDS: METOPROLOL 50 MG TAB GTB ×3 (05:05→21:18)
[2018-08-17] MEDS: MEROPENEM 1 GM/50ML(PMX) 50 ML IVPB ×3 (05:05→21:13)
[2018-08-17 06:35] LABS: ADD MAN DIFF? NO
[2018-08-17 06:45] LABS: BASOPHILS % 0.2 % (0.0-2.0); EOSINOPHILS # 0.5 10^3/ul (0.0-0.5); EOSINOPHILS % 4.1 % (0.0-7.0); HEMATOCRIT 32.1 % (42.0-52.0); LYMPHOCYTES # 1.5 10^3/ul (0.8-2.9); LYMPHOCYTES % 12.7 % (15.0-51.0); MEAN CORPUSCULAR HEMOGLOBIN 29.5 pg (29.0-33.0); MEAN CORPUSCULAR HGB CONC 31.2 g/dl (32.0-37.0); MEAN CORPUSCULAR VOLUME 94.7 fl (82.0-101.0); MEAN PLATELET VOLUME 10.9 fl (7.4-10.4); MONOCYTE # 0.5 10^3/ul (0.3-0.9); MONOCYTES % 3.9 % (0.0-11.0); NEUTROPHIL # 9.1 10^3/ul (1.6-7.5); NEUTROPHILS % 74.7 % (39.0-77.0); PLATELET COUNT 278 10^3/UL (140-415); RED BLOOD COUNT 3.39 10^6/ul (4.70-6.10); RED CELL DISTRIBUTION WIDTH 13.8 % (11.5-14.5)
[2018-08-17 06:45] LABS: WHITE BLOOD COUNT 12.2 10^3/ul (4.8-10.8)
[2018-08-17 07:12] LABS: BLOOD UREA NITROGEN 31 mg/dl (7-20); CALCIUM 8.8 mg/dl (8.4-10.2); CHLORIDE 89 mmol/L (97-110); GLUCOSE 127 mg/dl (70-220); POTASSIUM 4.9 mmol/L (3.5-5.1); SODIUM 133 mmol/L (135-144)
[2018-08-17 07:20] LABS: ANION GAP 8 (8-16); CARBON DIOXIDE 41 mmol/L (21-31)
[2018-08-17] MEDS: VALPROIC ACID LIQUID CUP 250 MG/5 ML CUP GTB ×3 (08:10→20:26)
[2018-08-17] MEDS: ENOXAPARIN 60 MG/0.6 ML SYG SC ×2 (08:10→20:58)
[2018-08-17] MEDS: FUROSEMIDE 40 MG INJ IV (08:11)
[2018-08-17] MEDS: POTASSIUM CHLORIDE 20 MEQ POWDER FOR ORAL SOLN PO (08:11)
[2018-08-17] MEDS: FERROUS SULFATE (EC) 325 MG TAB PO (08:11)
[2018-08-17] MEDS: LOSARTAN 25 MG TAB PO ×2 (08:11→20:27)
[2018-08-17] MEDS: metFORMIN 500 MG TAB GTB ×2 (08:11→17:20)
[2018-08-17] MEDS: FLUOCINONIDE 0.05% CR 30GM TUBE TOP (20:27)
[2018-08-18] MEDS: ALPRAZOLAM 0.5 MG TAB GTB ×6 (00:19→21:03)
[2018-08-18] MEDS: VANCOMYCIN 750 MG in SOD CHLORIDE 0.9% 150 ML IVPB ×2 (00:19→12:59)
[2018-08-18] MEDS: INSULIN ASPART [NOVOLOG] 3 ML PEN SC ×6 (00:22→21:00)
[2018-08-18] MEDS: ALBUTEROL/IPRATROPIUM (NEB) 3 ML AMP HHN ×4 (02:04→19:27)
[2018-08-18] MEDS: LANSOPRAZOLE 30 MG CAP GTB (05:46)
[2018-08-18] MEDS: DILTIAZEM 30 MG TAB PO ×3 (05:48→22:00)
[2018-08-18] MEDS: MEROPENEM 1 GM/50ML(PMX) 50 ML IVPB ×3 (05:48→22:08)
[2018-08-18] MEDS: METOPROLOL 50 MG TAB GTB ×3 (05:48→22:00)
[2018-08-18 06:48] LABS: ADD MAN DIFF? NO
[2018-08-18 06:52] LABS: BASOPHILS % 0.1 % (0.0-2.0); EOSINOPHILS # 0.5 10^3/ul (0.0-0.5); EOSINOPHILS % 5.2 % (0.0-7.0); HEMATOCRIT 30.3 % (42.0-52.0); HEMOGLOBIN 9.5 g/dl (14.0-18.0); LYMPHOCYTES # 1.5 10^3/ul (0.8-2.9); LYMPHOCYTES % 16.5 % (15.0-51.0); MEAN CORPUSCULAR HEMOGLOBIN 29.5 pg (29.0-33.0); MEAN CORPUSCULAR HGB CONC 31.4 g/dl (32.0-37.0); MEAN CORPUSCULAR VOLUME 94.1 fl (82.0-101.0); MEAN PLATELET VOLUME 10.7 fl (7.4-10.4); MONOCYTE # 0.4 10^3/ul (0.3-0.9); NEUTROPHIL # 6.4 10^3/ul (1.6-7.5); NEUTROPHILS % 71.1 % (39.0-77.0); PLATELET COUNT 235 10^3/UL (140-415); RED BLOOD COUNT 3.22 10^6/ul (4.70-6.10); RED CELL DISTRIBUTION WIDTH 13.8 % (11.5-14.5)
[2018-08-18 07:12] LABS: BLOOD UREA NITROGEN 25 mg/dl (7-20); CALCIUM 8.9 mg/dl (8.4-10.2); CHLORIDE 91 mmol/L (97-110); CREATININE 0.65 mg/dl (0.61-1.24); GLUCOSE 114 mg/dl (70-220); POTASSIUM 4.2 mmol/L (3.5-5.1); SODIUM 135 mmol/L (135-144)
[2018-08-18 07:24] LABS: ANION GAP 6 (8-16)
[2018-08-18 07:25] LABS: CARBON DIOXIDE 42 mmol/L (21-31)
[2018-08-18] MEDS: LOSARTAN 25 MG TAB PO (09:00)
[2018-08-18] MEDS: POTASSIUM CHLORIDE 20 MEQ POWDER FOR ORAL SOLN PO (09:11)
[2018-08-18] MEDS: FUROSEMIDE 40 MG INJ IV (09:14)
[2018-08-18] MEDS: metFORMIN 500 MG TAB GTB ×2 (09:15→18:14)
[2018-08-18] MEDS: VALPROIC ACID LIQUID CUP 250 MG/5 ML CUP GTB ×3 (09:15→21:03)
[2018-08-18] MEDS: FERROUS SULFATE (EC) 325 MG TAB PO (09:16)
[2018-08-18] MEDS: ENOXAPARIN 60 MG/0.6 ML SYG SC ×2 (09:53→21:19)
[2018-08-18] MEDS: FLUOCINONIDE 0.05% CR 30GM TUBE TOP (21:19)
[2018-08-18 23:29] LABS: VANCOMYCIN,TROUGH 18.3 ug/ml (10.0-20.0)
[2018-08-19] MEDS: INSULIN ASPART [NOVOLOG] 3 ML PEN SC ×3 (01:00→08:30)
[2018-08-19] MEDS: ALBUTEROL/IPRATROPIUM (NEB) 3 ML AMP HHN ×5 (01:13→20:00)
[2018-08-19] MEDS: ALPRAZOLAM 0.5 MG TAB GTB ×6 (01:29→20:35)
[2018-08-19] MEDS: VANCOMYCIN 750 MG in SOD CHLORIDE 0.9% 150 ML IVPB (01:29)
[2018-08-19] MEDS: MEROPENEM 1 GM/50ML(PMX) 50 ML IVPB (05:14)
[2018-08-19] MEDS: METOPROLOL 50 MG TAB GTB (05:16)
[2018-08-19] MEDS: DILTIAZEM 30 MG TAB PO (05:17)
[2018-08-19] MEDS: LANSOPRAZOLE 30 MG CAP GTB (05:20)
[2018-08-19] MEDS: FERROUS SULFATE (EC) 325 MG TAB PO (08:13)
[2018-08-19] MEDS: POTASSIUM CHLORIDE 20 MEQ POWDER FOR ORAL SOLN PO (08:13)
[2018-08-19] MEDS: metFORMIN 500 MG TAB GTB (08:13)
[2018-08-19] MEDS: FUROSEMIDE 40 MG INJ IV (08:14)
[2018-08-19] MEDS: VALPROIC ACID LIQUID CUP 250 MG/5 ML CUP GTB (08:14)
[2018-08-19] MEDS: ENOXAPARIN 60 MG/0.6 ML SYG SC (08:25)
[2018-08-19] MEDS: morphine 10 MG INJ IV (13:14)
[2018-08-19] MEDS: morphine (DRIP) 100 MG/100 ML 100 ML IV (14:37)
[2018-08-19] MEDS: SCOPOLAMINE 1.5 MG PATCH TRANSDERM (16:46)
[2018-08-19] MEDS ORDERED: VANCOMYCIN 500MG/NS (PMX) 100 ML IVPB (18:00)
[2018-08-19] MEDS: LORAZEPAM 2 MG INJ IV (18:37)
[2018-08-19] MEDS ORDERED: morphine 2 MG INJ IV (23:30)
[2018-08-20] MEDS: ALPRAZOLAM 0.5 MG TAB GTB ×6 (01:42→20:56)
[2018-08-20] MEDS: ATROPINE 1% 5 ML OPH SL ×2 (11:39→20:30)
[2018-08-20] MEDS: morphine (DRIP) 100 MG/100 ML 100 ML IV ×2 (11:48→16:15)
[2018-08-20] MEDS ORDERED: BISACODYL 10 MG SUPP PR (14:30)
[2018-08-20] MEDS: LORAZEPAM 2 MG INJ IV (20:19)
[2018-08-21] MEDS: ALPRAZOLAM 0.5 MG TAB GTB ×7 (01:40→21:48)
[2018-08-21] MEDS: morphine (DRIP) 100 MG/100 ML 100 ML IV ×7 (12:39→21:03)
[2018-08-21] MEDS: morphine 2 MG INJ IV ×8 (14:45→22:52)
[2018-08-21] MEDS: ATROPINE 1% 5 ML OPH SL (16:34)
[2018-08-22] MEDS: ALPRAZOLAM 0.5 MG TAB GTB ×6 (00:09→20:28)
[2018-08-22] MEDS: ACETAMINOPHEN 650MG/20.3ML CUP GTB ×4 (00:10→20:30)
[2018-08-22] MEDS: morphine 2 MG INJ IV ×5 (00:22→20:30)
[2018-08-22] MEDS: morphine (DRIP) 100 MG/100 ML 100 ML IV ×2 (09:18→20:11)
[2018-08-22] MEDS: SCOPOLAMINE 1.5 MG PATCH TRANSDERM (16:30)
[2018-08-23] MEDS: ALPRAZOLAM 0.5 MG TAB GTB ×3 (02:26→07:34)
== END 2018-08-23 09:54 | disposition expired | DRG 871 ==
LOC: E/R 20:06 → TEL 22:50
PROC: 02H633Z Insertion of Infusion Device into Right Atrium, Percutaneous Approach (ICD-10-PCS; principal; 2018-07-27)
PROC: 30233N1 Transfusion of Nonautologous Red Blood Cells into Peripheral Vein, Percutaneous Approach (ICD-10-PCS; 2018-08-11)
PROC: 5A09557 Assistance with Respiratory Ventilation, Greater than 96 Consecutive Hours, Continuous Positive Airway Pressure (ICD-10-PCS; 2018-08-13)
DX: A41.9 Sepsis, unspecified organism (principal); J69.0 Pneumonitis due to inhalation of food and vomit; G93.40 Encephalopathy, unspecified; J96.22 Acute and chronic respiratory failure with hypercapnia; J96.21 Acute and chronic respiratory failure with hypoxia; I50.33 Acute on chronic diastolic (congestive) heart failure; I69.954 Hemiplegia and hemiparesis following unspecified cerebrovascular disease affecting left non-dominant side; I47.2 Ventricular tachycardia; R65.20 Severe sepsis without septic shock; Z93.1 Gastrostomy status; Z66 Do not resuscitate; D64.9 Anemia, unspecified; E78.5 Hyperlipidemia, unspecified; F41.9 Anxiety disorder, unspecified; F32.9 Major depressive disorder, single episode, unspecified; F25.9 Schizoaffective disorder, unspecified; F03.90 Unspecified dementia, unspecified severity, without behavioral disturbance, psychotic disturbance, mood disturbance, and anxiety; I48.0 Paroxysmal atrial fibrillation; I11.0 Hypertensive heart disease with heart failure; I69.920 Aphasia following unspecified cerebrovascular disease; I69.991 Dysphagia following unspecified cerebrovascular disease; I69.998 Other sequelae following unspecified cerebrovascular disease; K11.7 Disturbances of salivary secretion; M24.50 Contracture, unspecified joint; R13.10 Dysphagia, unspecified; R94.31 Abnormal electrocardiogram [ECG] [EKG]; Z22.322 Carrier or suspected carrier of Methicillin resistant Staphylococcus aureus; Z79.82 Long term (current) use of aspirin
CPT/HCPCS: 36415; 36430; 36569; 36600; 71045; 76604; 76937; 80048; 80053; 80202; 82550; 82553; 82565; 82803; 82962; 83036; 83605; 83735; 83880; 84484; 84520; 85025; 86850; 86900; 86901; 86920; 87040; 87081; 87086; 93005; 93306; 94640; 94644; 94660; 94664; 96374; 96375; 99291-25